=== PATIENT | female | born 1955 | race African-American/Black ===

== ENCOUNTER 2018-03-18 10:58 | Inpatient (IN) | payer BC, MEDICAID ==
[~2018-03-18] VITALS: Ht 167.6 cm; Wt 57.8 kg
[2018-03-18 12:03] LABS: EOSINOPHILS % 0.7 % (0.0-5.0); HEMATOCRIT. 39.3 % (36.0-48.0); HEMOGLOBIN. 12.6 g/dL (12.0-16.0); LYMPHOCYTES % 24.6 % (20.0-50.0); MEAN CORPUSCULAR HEMOGLOBIN 29.3 pg (28.0-32.0); MEAN CORPUSCULAR VOLUME 91.4 fL (81.0-99.0); MEAN PLATELET VOLUME 8.4 fl (7.4-10.4); NEUTROPHILS % 69.7 % (40.0-76.0); PLATELET 280 x1000/uL (130-400); RED BLOOD CELL COUNT 4.29 mill/uL (4.2-5.4)
[2018-03-18 12:05] LABS: CHLORIDE 106 mEq/L (98-107)
[2018-03-18 12:06] LABS: PROTHROMBIN TIME 10.5 sec (9.1-11.1)
[2018-03-18 12:17] LABS: ETHANOL BLOOD < 10 mg/dL
[2018-03-18 12:19] LABS: LDL CHOLESTEROL 93 mg/dL (5-100)
[2018-03-18] MEDS ORDERED: LABETALOL HCL 20MG/4ML CARPUJECT IV ONE (12:30)
[2018-03-18] MEDS ORDERED: ASPIRIN 81MG TABLET PO ONE (12:30)
[2018-03-18] MEDS ORDERED: SODIUM CHLORIDE 0.9% 500 ML IV ONE (12:30)
[2018-03-18] MEDS ORDERED: HYDRALAZINE 20MG/ML VIAL IV ONE (13:30)
[2018-03-18] MEDS ORDERED: ASPIRIN 300MG SUPP PR ONE (14:15)
[2018-03-18] MEDS ORDERED: IOHEXOL-350 100 ML BOTTLE ONE (14:28)
[2018-03-18] MEDS ORDERED: LABETALOL HCL 20MG/4ML CARPUJECT IV NR (15:45)
[2018-03-18] MEDS ORDERED: DEXTROSE 50% WATER 50ML SYRINGE IV PRN (15:45)
[2018-03-18] MEDS ORDERED: ONDANSETRON HCL 4MG/2ML INJ IV PRN (15:45)
[2018-03-18] MEDS ORDERED: HYDRALAZINE 20MG/ML VIAL IV PRN ×2 (16:00→20:00)
[2018-03-18] MEDS ORDERED: BLOOD SUGAR DIAGNOSTIC STRIP TEST SCH (16:00)
[2018-03-18] MEDS ORDERED: INSULIN LISPRO 100 UNITS/ML SUBCUT SCH (16:00)
[2018-03-18 17:08] LABS: CLARITY URINE CLOUDY (CLEAR); COLOR URINE YELLOW (YELLOW); KETONES URINE NEGATIVE (NEGATIVE); LEUKOCYTE ESTERASE URINE 3+ (NEGATIVE); NITRITE URINE NEGATIVE (NEGATIVE); OCCULT BLOOD URINE 1+ (NEGATIVE); PROTEIN URINE TRACE (NEGATIVE); UROBILINOGEN URINE 0.2 E.U./dL (0.2-1.0)
[2018-03-18 17:46] LABS: *AMPHETAMINES SCREEN URINE NEGATIVE (NEGATIVE)
[2018-03-18 17:47] LABS: *BARBITURATES SCREEN URINE NEGATIVE (NEGATIVE); *BENZODIAZEPINES SCREEN URINE NEGATIVE (NEGATIVE); METHADONE URINE SCREEN NEGATIVE (NEGATIVE); OPIATES URINE SCREEN NEGATIVE (NEGATIVE); PHENCYCLIDINE URINE SCREEN NEGATIVE (NEGATIVE)
[2018-03-18 17:48] LABS: CANNABINOID URINE SCREEN NEGATIVE (NEGATIVE)
[2018-03-18 17:57] LABS: *COCAINE SCREEN URINE NEGATIVE (NEGATIVE)
[2018-03-18] MEDS ORDERED: CEFTRIAXONE 1 G PREMIX 50 ML IV ONE (18:30)
[2018-03-18] MEDS: ATORVASTATIN CALCIUM 20MG TABLET PO SCH (21:00)
[2018-03-19] VITALS (10 sets, daily range): BP systolic 95–140; BP diastolic 51–65
[2018-03-19] MEDS ORDERED: SODIUM CHLORIDE 0.45% 1,000 ML IV SCH (03:00)
[2018-03-19] MEDS: BLOOD SUGAR DIAGNOSTIC STRIP TEST SCH ×4 (06:40→20:42)
[2018-03-19 06:44] LABS: CHLORIDE 106 mEq/L (98-107)
[2018-03-19 06:59] LABS: BASOPHILS % 0.8 % (0.0-2.0); HEMATOCRIT. 32.7 % (36.0-48.0); HEMOGLOBIN. 10.7 g/dL (12.0-16.0); LYMPHOCYTES % 33.9 % (20.0-50.0); MEAN CORPUSCULAR HEMOGLOBIN 29.6 pg (28.0-32.0); MEAN PLATELET VOLUME 8.5 fl (7.4-10.4); MONOCYTES % 6.7 % (2.0-8.0); NEUTROPHILS % 57.6 % (40.0-76.0); PLATELET 249 x1000/uL (130-400); RED CELL DISTRIBUTION WIDTH 15.1 % (11.6-14.6)
[2018-03-19] MEDS: INSULIN LISPRO 100 UNITS/ML SUBCUT SCH ×4 (07:20→20:43)
[2018-03-19] MEDS ORDERED: ASPI-1159 PO (08:34)
[2018-03-19] MEDS ORDERED: LISI40TA4 PO (08:34)
[2018-03-19] MEDS ORDERED: LIP40 PO (08:34)
[2018-03-19] MEDS ORDERED: COR25 PO (08:34)
[2018-03-19] MEDS ORDERED: HYDR-4135 PO (08:34)
[2018-03-19] MEDS: ENOXAPARIN 40MG/0.4ML SYR SUBCUT SCH (09:25)
[2018-03-19] MEDS: CLOPIDOGREL 75MG TABLET PO SCH (12:22)
[2018-03-19] MEDS ORDERED: CEFTRIAXONE 1,000 MG in DEXTROSE 5% WATER 50 ML IV SCH (18:00)
[2018-03-19] MEDS: ATORVASTATIN CALCIUM 20MG TABLET PO SCH (20:47)
[2018-03-20] VITALS (7 sets, daily range): BP systolic 111–159; BP diastolic 59–78
[2018-03-20 06:28] LABS: BASOPHILS % 0.5 % (0.0-2.0); HEMATOCRIT. 30.5 % (36.0-48.0); HEMOGLOBIN. 10.1 g/dL (12.0-16.0); LYMPHOCYTES % 34.5 % (20.0-50.0); MEAN CORPUSCULAR HEMOGLOBIN 30.1 pg (28.0-32.0); MEAN CORPUSCULAR VOLUME 90.9 fL (81.0-99.0); MEAN PLATELET VOLUME 8.3 fl (7.4-10.4); MONOCYTES % 6.8 % (2.0-8.0); NEUTROPHILS % 56.2 % (40.0-76.0); PLATELET 230 x1000/uL (130-400); RED BLOOD CELL COUNT 3.36 mill/uL (4.2-5.4); RED CELL DISTRIBUTION WIDTH 15.4 % (11.6-14.6)
[2018-03-20] MEDS: BLOOD SUGAR DIAGNOSTIC STRIP TEST SCH (06:32)
[2018-03-20 06:44] LABS: CHLORIDE 108 mEq/L (98-107)
[2018-03-20] MEDS: INSULIN LISPRO 100 UNITS/ML SUBCUT SCH (07:20)
[2018-03-20] MEDS: ENOXAPARIN 40MG/0.4ML SYR SUBCUT SCH (08:02)
[2018-03-20] MEDS: CLOPIDOGREL 75MG TABLET PO SCH (08:02)
[2018-03-20] MEDS ORDERED: CLOP75TA16 PO (11:17)
== END 2018-03-20 12:18 | disposition home health service (06) | DRG 720 ==
LOC: ER 10:58 → 3WST 13:47 → EDBEDREQ 13:49 → EDBEDREQTM 13:49 → ENRESERV 03-19 00:40
PROVIDERS: ADMIT Internal Medicine; ATTEND Internal Medicine
DX: A41.9 Sepsis, unspecified organism (principal); I63.9 Cerebral infarction, unspecified; G93.41 Metabolic encephalopathy; I69.359 Hemiplegia and hemiparesis following cerebral infarction affecting unspecified side; R47.01 Aphasia; E11.9 Type 2 diabetes mellitus without complications; I16.0 Hypertensive urgency; N39.0 Urinary tract infection, site not specified; E78.5 Hyperlipidemia, unspecified; I10 Essential (primary) hypertension; I65.23 Occlusion and stenosis of bilateral carotid arteries; E44.1 Mild protein-calorie malnutrition
CPT/HCPCS: 36415; 70496; 70498; 70551; 71045; 80048; 80061; 80305; 82962; 83036; 83721; 84443; 84484; 87186; 92610; 93005; 93970; 96361; 96365; 96375; 96376; 97163; 99291; A6261; G0482; J0360; J0696; J1650; J1815; J3490; J7050; J7060; Q9967

== ENCOUNTER 2018-05-03 05:29 | Inpatient (IN) | payer MEDICAID ==
[2018-05-03] VITALS (24 sets, daily range): BP systolic 92–181; BP diastolic 51–106
[~2018-05-03] VITALS: Ht 165.1 cm; Wt 62.1 kg
[~2018-05-03 05:29] MED LIST: ASPI-1159 PO; CLOP75TA16 PO; COR25 PO; HYDR-4135 PO; LIP40 PO; LISI40TA4 PO
[2018-05-03] MEDS ORDERED: BACITRACIN 15GM TUBE TOP ONE (06:33)
[2018-05-03] MEDS ORDERED: LIDOCAINE HCL 1% 20ML VIAL (Pyxis) INJ ONE (06:33)
[2018-05-03] MEDS ORDERED: THROMBIN (BOVINE) 5000 UNITS/VIAL TOP ONE ×2 (06:34→07:49)
[2018-05-03] MEDS ORDERED: BACITRACIN 50,000 UNITS/VIAL ONE (06:34)
[2018-05-03] MEDS ORDERED: HEPARIN SODIUM 1,000 UNIT/1ML VIAL IV ONE (06:34)
[2018-05-03] MEDS ORDERED: BUPIVACAINE HCL/PF 0.5% (5MG/ML) 10ML ONE (06:34)
[2018-05-03] MEDS ORDERED: GELATIN SPONGE,ABSORBABLE 12-7MM SPONGE ONE (07:12)
[2018-05-03] MEDS ORDERED: MIDAZOLAM HCL 2 MG/2 ML VIAL ONE (07:19)
[2018-05-03] MEDS ORDERED: PROPOFOL 200MG/20ML VIAL IV ONE (07:19)
[2018-05-03] MEDS ORDERED: GLYCOPYRROLATE 0.2 MG/ML 2ML VIAL ONE ×2 (07:19→09:26)
[2018-05-03] MEDS ORDERED: ROCURONIUM BROMIDE 10MG/ML VIAL 5ML IV ONE (07:19)
[2018-05-03] MEDS ORDERED: FENTANYL CITRATE/PF 50MCG/ML 2ML VIAL ONE (07:19)
[2018-05-03] MEDS ORDERED: NEOSTIGMINE METHYLSULFATE 1MG/ML 10 ML VIAL ONE (07:19)
[2018-05-03] MEDS ORDERED: NORMAL SALINE 0.9% 10 ML SYR ONE (07:30)
[2018-05-03] MEDS ORDERED: LIDOCAINE HCL/PF 1% 10 MG/ML 5ML VIAL ONE (07:42)
[2018-05-03] MEDS ORDERED: DEXAMETHASONE 4MG/ML 1ML VIAL ONE (07:46)
[2018-05-03] MEDS ORDERED: ONDANSETRON HCL 4MG/2ML INJ ONE (08:59)
[2018-05-03] MEDS ORDERED: SODIUM CHLORIDE 0.9% 10ML VIAL ONE (09:41)
[2018-05-03] MEDS ORDERED: LABETALOL HCL 5MG/ML VIAL 20ML IV ONE ×2 (09:41→10:30)
[2018-05-03] MEDS ORDERED: ONDANSETRON HCL 4MG/2ML INJ IV PRN ×2 (10:15→10:30)
[2018-05-03] MEDS ORDERED: ACETAMINOPHEN 325MG TABLET PO PRN (10:30)
[2018-05-03] MEDS ORDERED: DEXTROSE 50% WATER 50ML SYRINGE IV PRN (10:30)
[2018-05-03] MEDS ORDERED: CLONIDINE 0.1MG TABLET PO PRN (10:30)
[2018-05-03] MEDS: HYDROMORPHONE HCL/PF 2MG/ML CPJ IV PRN ×3 (10:49→14:30)
[2018-05-03] MEDS ORDERED: HEPARIN 100 UNITS/1 ML VIAL IV ONE (11:30)
[2018-05-03] MEDS ORDERED: HEPARIN 100 UNITS/1 ML VIAL IV NR (12:00)
[2018-05-03] MEDS ORDERED: HEPARIN SODIUM 1,000 UNIT/1ML VIAL IV NR (12:00)
[2018-05-03] MEDS ORDERED: BLOOD SUGAR DIAGNOSTIC STRIP TEST SCH (13:00)
[2018-05-03] MEDS ORDERED: HYDRALAZINE 20MG/ML VIAL IV PRN (14:45)
[2018-05-03] MEDS ORDERED: HYDROCODONE/ACETAMINOPHEN 5/325MG TABLET PO PRN (15:30)
[2018-05-03] MEDS ORDERED: AMLO5TAB88 PO (15:52)
[2018-05-03 19:56] LABS: CHLORIDE 107 mEq/L (98-107)
[2018-05-03 20:03] LABS: HEMATOCRIT. 34.4 % (36.0-48.0); HEMOGLOBIN. 11.3 g/dL (12.0-16.0); MEAN CORPUSCULAR HEMOGLOBIN 30.5 pg (28.0-32.0); MEAN CORPUSCULAR VOLUME 92.4 fL (81.0-99.0); MEAN PLATELET VOLUME 8.4 fl (7.4-10.4); PLATELET 225 x1000/uL (130-400); RED BLOOD CELL COUNT 3.72 mill/uL (4.2-5.4); RED CELL DISTRIBUTION WIDTH 14.3 % (11.6-14.6)
[2018-05-03] MEDS: ATORVASTATIN CALCIUM 40MG TABLET PO SCH (21:35)
[2018-05-03] MEDS: BLOOD SUGAR DIAGNOSTIC STRIP TEST SCH (21:35)
[2018-05-03] MEDS: INSULIN LISPRO 100 UNITS/ML SUBCUT SCH (21:36)
[2018-05-03 23:20] LABS: PLATELET ESTIMATE NORMAL
[2018-05-04] VITALS (30 sets, daily range): BP systolic 100–153; BP diastolic 50–76
[2018-05-04 05:47] LABS: BASOPHILS % 0.2 % (0.0-2.0); HEMATOCRIT. 29.5 % (36.0-48.0); HEMOGLOBIN. 10.3 g/dL (12.0-16.0); LYMPHOCYTES % 22.1 % (20.0-50.0); MEAN CORPUSCULAR HEMOGLOBIN 32.1 pg (28.0-32.0); MEAN CORPUSCULAR VOLUME 92.1 fL (81.0-99.0); MONOCYTES % 9.2 % (2.0-8.0); NEUTROPHILS % 68.5 % (40.0-76.0); PLATELET 212 x1000/uL (130-400); RED CELL DISTRIBUTION WIDTH 14.7 % (11.6-14.6)
[2018-05-04 05:51] LABS: CHLORIDE 108 mEq/L (98-107)
[2018-05-04] MEDS: BLOOD SUGAR DIAGNOSTIC STRIP TEST SCH ×4 (06:12→21:52)
[2018-05-04] MEDS: INSULIN LISPRO 100 UNITS/ML SUBCUT SCH ×4 (06:13→21:52)
[2018-05-04] MEDS: CLOPIDOGREL 75MG TABLET PO SCH (08:53)
[2018-05-04] MEDS: ASPIRIN 81MG TABLET PO SCH (08:54)
[2018-05-04] MEDS: LISINOPRIL 40MG TABLET PO SCH (08:56)
[2018-05-04] MEDS: ATORVASTATIN CALCIUM 40MG TABLET PO SCH (21:51)
[2018-05-05] VITALS (9 sets, daily range): BP systolic 104–165; BP diastolic 54–88
[2018-05-05] MEDS: BLOOD SUGAR DIAGNOSTIC STRIP TEST SCH ×3 (07:15→21:29)
[2018-05-05] MEDS: INSULIN LISPRO 100 UNITS/ML SUBCUT SCH ×4 (07:31→21:35)
[2018-05-05] MEDS: LISINOPRIL 40MG TABLET PO SCH (09:02)
[2018-05-05] MEDS: CLOPIDOGREL 75MG TABLET PO SCH (09:02)
[2018-05-05] MEDS: ASPIRIN 81MG TABLET PO SCH (09:02)
[2018-05-05 09:21] LABS: BASOPHILS % 0.2 % (0.0-2.0); EOSINOPHILS % 0.3 % (0.0-5.0); HEMATOCRIT. 28.7 % (36.0-48.0); HEMOGLOBIN. 9.7 g/dL (12.0-16.0); LYMPHOCYTES % 37.1 % (20.0-50.0); MEAN CORPUSCULAR HEMOGLOBIN 30.9 pg (28.0-32.0); MEAN CORPUSCULAR VOLUME 91.9 fL (81.0-99.0); MEAN PLATELET VOLUME 8.1 fl (7.4-10.4); MONOCYTES % 6.2 % (2.0-8.0); NEUTROPHILS % 56.2 % (40.0-76.0); PLATELET 206 x1000/uL (130-400); RED BLOOD CELL COUNT 3.13 mill/uL (4.2-5.4); RED CELL DISTRIBUTION WIDTH 14.3 % (11.6-14.6)
[2018-05-05 09:35] LABS: CHLORIDE 107 mEq/L (98-107)
[2018-05-05 12:14] LABS: INR 1.1; PROTHROMBIN TIME 11.1 sec (9.1-11.1)
[2018-05-05 12:17] LABS: FOLIC ACID (FOLATE) SERUM 10.1 ng/mL (>5.38)
[2018-05-05] MEDS ORDERED: IOHEXOL-350 100 ML BOTTLE ONE (14:09)
[2018-05-05] MEDS ORDERED: LABETALOL 5MG/ML SYR 20 MG/4 ML SYRINGE IV PRN (16:30)
[2018-05-05] MEDS ORDERED: WARFARIN SODIUM 3MG TABLET PO SCH (18:00)
[2018-05-05] MEDS: ENOXAPARIN 60MG/0.6ML SYR SUBCUT SCH (18:03)
[2018-05-05] MEDS: ATORVASTATIN CALCIUM 40MG TABLET PO SCH (21:28)
[2018-05-06] VITALS (15 sets, daily range): BP systolic 98–172; BP diastolic 56–105
[2018-05-06 06:39] LABS: INR 1.1; PROTHROMBIN TIME 10.7 sec (9.1-11.1)
[2018-05-06 06:43] LABS: BASOPHILS % 0.2 % (0.0-2.0); EOSINOPHILS % 0.9 % (0.0-5.0); HEMATOCRIT. 27.8 % (36.0-48.0); HEMOGLOBIN. 9.4 g/dL (12.0-16.0); LYMPHOCYTES % 41.2 % (20.0-50.0); MEAN CORPUSCULAR HEMOGLOBIN 31.2 pg (28.0-32.0); MEAN CORPUSCULAR VOLUME 92.2 fL (81.0-99.0); MEAN PLATELET VOLUME 8.3 fl (7.4-10.4); MONOCYTES % 6.3 % (2.0-8.0); NEUTROPHILS % 51.4 % (40.0-76.0); PLATELET 201 x1000/uL (130-400); RED BLOOD CELL COUNT 3.02 mill/uL (4.2-5.4); RED CELL DISTRIBUTION WIDTH 14.1 % (11.6-14.6)
[2018-05-06] MEDS: ENOXAPARIN 60MG/0.6ML SYR SUBCUT SCH ×2 (06:57→18:45)
[2018-05-06] MEDS: BLOOD SUGAR DIAGNOSTIC STRIP TEST SCH ×4 (07:30→21:00)
[2018-05-06 07:33] LABS: CHLORIDE 104 mEq/L (98-107)
[2018-05-06] MEDS: ASPIRIN 81MG TABLET PO SCH (10:02)
[2018-05-06] MEDS: CLOPIDOGREL 75MG TABLET PO SCH (10:03)
[2018-05-06] MEDS: LISINOPRIL 40MG TABLET PO SCH (10:03)
[2018-05-06] MEDS: INSULIN LISPRO 100 UNITS/ML SUBCUT SCH ×4 (10:21→21:00)
[2018-05-06] MEDS ORDERED: WARFARIN SODIUM 3MG TABLET PO NR (18:00)
[2018-05-06] MEDS: ATORVASTATIN CALCIUM 40MG TABLET PO SCH (20:59)
[2018-05-06] MEDS ORDERED: INSULIN GLARGINE UD 100 UNITS/ML SYR SUBCUT SCH (22:00)
[2018-05-07] VITALS (14 sets, daily range): BP systolic 90–131; BP diastolic 54–75
[2018-05-07] MEDS: ENOXAPARIN 60MG/0.6ML SYR SUBCUT SCH (06:00)
[2018-05-07 06:38] LABS: INR 1.1; PROTHROMBIN TIME 11.3 sec (9.1-11.1)
[2018-05-07 07:15] LABS: CLARITY URINE CLOUDY (CLEAR); COLOR URINE YELLOW (YELLOW); KETONES URINE NEGATIVE (NEGATIVE); LEUKOCYTE ESTERASE URINE 2+ (NEGATIVE); NITRITE URINE NEGATIVE (NEGATIVE); OCCULT BLOOD URINE TRACE (NEGATIVE); PROTEIN URINE NEGATIVE (NEGATIVE); SPECIFIC GRAVITY URINE 1.015 (1.005-1.030); UROBILINOGEN URINE 0.2 E.U./dL (0.2-1.0)
[2018-05-07 07:31] LABS: HEMATOCRIT 30.6 % (36.0-48.0); HEMOGLOBIN 10.2 g/dL (12.0-16.0); MEAN CORPUSCULAR HEMOGLOBIN 30.5 pg (28.0-32.0); MEAN CORPUSCULAR VOLUME 91.8 fL (81.0-99.0); PLATELET 245 x1000/uL (130-400); RED BLOOD CELL COUNT 3.33 mill/uL (4.2-5.4); RED CELL DISTRIBUTION WIDTH 14.2 % (11.6-14.6)
[2018-05-07] MEDS: BLOOD SUGAR DIAGNOSTIC STRIP TEST SCH ×2 (07:59→12:51)
[2018-05-07] MEDS: INSULIN LISPRO 100 UNITS/ML SUBCUT SCH ×2 (08:21→13:05)
[2018-05-07] MEDS: LISINOPRIL 40MG TABLET PO SCH (09:44)
[2018-05-07] MEDS: CLOPIDOGREL 75MG TABLET PO SCH (09:44)
[2018-05-07] MEDS ORDERED: WARFARIN SODIUM 5MG TABLET PO NR (18:00)
== END 2018-05-07 14:55 | disposition home health service (06) | DRG 24 ==
LOC: OR 05:29 → MICUNO 18:00 → 5WST 05-04 18:00 → 5EST 05-05 14:37
PROVIDERS: ADMIT Internal Medicine; ATTEND Surgery Vascular Surgery
PROC: 03CJ0Z6 (ICD-10-PCS; principal; 2018-05-03)
PROC: 03CN0Z6 (ICD-10-PCS; 2018-05-03)
PROC: 03CL0Z6 (ICD-10-PCS; 2018-05-03)
PROC: 03UJ0KZ Supplement Left Common Carotid Artery with Nonautologous Tissue Substitute, Open Approach (ICD-10-PCS; 2018-05-03)
PROC: 03UL0KZ Supplement Left Internal Carotid Artery with Nonautologous Tissue Substitute, Open Approach (ICD-10-PCS; 2018-05-03)
PROC: 03UN0KZ Supplement Left External Carotid Artery with Nonautologous Tissue Substitute, Open Approach (ICD-10-PCS; 2018-05-03)
DX: I65.23 Occlusion and stenosis of bilateral carotid arteries (principal); I77.71 Dissection of carotid artery; I63.512 Cerebral infarction due to unspecified occlusion or stenosis of left middle cerebral artery; G81.91 Hemiplegia, unspecified affecting right dominant side; G90.2 Horner's syndrome; D72.829 Elevated white blood cell count, unspecified; E11.9 Type 2 diabetes mellitus without complications; R47.01 Aphasia; E78.00 Pure hypercholesterolemia, unspecified; E78.5 Hyperlipidemia, unspecified; H57.02 Anisocoria; I10 Essential (primary) hypertension; R47.81 Slurred speech; R29.810 Facial weakness; Z82.49 Family history of ischemic heart disease and other diseases of the circulatory system; Z83.3 Family history of diabetes mellitus
CPT/HCPCS: 36415; 70496; 70498; 70551; 80048; 82140; 82607; 82746; 82962; 85027; 87077; 87186; 88304; 88311; 92523; 92610; 93306; 93970; 97112; 97162; 97167; 97530; A6261; J0360; J1100; J1170; J1644; J1650; J1815; J2250; J2405; J2704; J2710; J3010; J3490; J7040; Q9967; A4315

== ENCOUNTER 2018-06-29 13:21 | Inpatient (IN) | payer MEDICAID ==
[~2018-06-29] VITALS: Ht 165.1 cm; Wt 64.4 kg
[~2018-06-29 13:21] MED LIST changes: -ASPI-1159 PO; -CLOP75TA16 PO; -COR25 PO; -HYDR-4135 PO
[2018-06-29 14:19] LABS: BASOPHILS % 0.3 % (0.0-2.0); EOSINOPHILS % 0.3 % (0.0-5.0); HEMATOCRIT. 25.3 % (36.0-48.0); HEMOGLOBIN. 8.3 g/dL (12.0-16.0); LYMPHOCYTES % 17.3 % (20.0-50.0); MEAN CORPUSCULAR HEMOGLOBIN 30.7 pg (28.0-32.0); MEAN CORPUSCULAR VOLUME 93.3 fL (81.0-99.0); MEAN PLATELET VOLUME 8.5 fl (7.4-10.4); MONOCYTES % 6.1 % (2.0-8.0); PLATELET 195 x1000/uL (130-400); RED BLOOD CELL COUNT 2.72 mill/uL (4.2-5.4)
[2018-06-29 14:25] LABS: CHLORIDE 105 mEq/L (98-107)
[2018-06-29 14:32] LABS: ETHANOL BLOOD < 10 mg/dL
[2018-06-29 14:48] LABS: CLARITY URINE TURBID (CLEAR); COLOR URINE YELLOW (YELLOW); KETONES URINE NEGATIVE (NEGATIVE); LEUKOCYTE ESTERASE URINE 2+ (NEGATIVE); NITRITE URINE POSITIVE (NEGATIVE); OCCULT BLOOD URINE 2+ (NEGATIVE); PROTEIN URINE NEGATIVE (NEGATIVE); SPECIFIC GRAVITY URINE 1.024 (1.005-1.030)
[2018-06-29] MEDS ORDERED: IOHEXOL-350 100 ML BOTTLE ONE (15:52)
[2018-06-29 18:15] VITALS: BP 150/62
[2018-06-29] MEDS ORDERED: APIX5TAB4 PO (18:36)
[2018-06-29] MEDS ORDERED: ASPI-1159 PO (18:36)
[2018-06-29] MEDS ORDERED: CEFTRIAXONE 1 G PREMIX 50 ML IV SCH (19:30)
[2018-06-29 19:45] VITALS: BP 116/58
[2018-06-29 20:00] VITALS: BP 116/58
[2018-06-29] MEDS ORDERED: DEXTROSE 50% WATER 50ML SYRINGE IV PRN (20:45)
[2018-06-29] MEDS ORDERED: ONDANSETRON HCL 4MG/2ML INJ IV PRN (20:45)
[2018-06-29] MEDS: BLOOD SUGAR DIAGNOSTIC STRIP TEST SCH (21:18)
[2018-06-29] MEDS: INSULIN LISPRO 100 UNITS/ML SUBCUT SCH (21:25)
[2018-06-29] MEDS: CEFTRIAXONE 1 G PREMIX 50 ML IV SCH (22:35)
[2018-06-30] VITALS: BP 122/60
[2018-06-30 04:00] VITALS: BP 101/60
[2018-06-30 08:00] VITALS: BP 130/58
[2018-06-30] MEDS: BLOOD SUGAR DIAGNOSTIC STRIP TEST SCH ×4 (08:06→21:20)
[2018-06-30] MEDS ORDERED: ASPIRIN 81MG TABLET PO SCH (09:00)
[2018-06-30] MEDS: ATORVASTATIN CALCIUM 40MG TABLET PO SCH (09:49)
[2018-06-30] MEDS: LISINOPRIL 20MG TABLET PO SCH (09:50)
[2018-06-30] MEDS: INSULIN LISPRO 100 UNITS/ML SUBCUT SCH ×4 (09:52→21:41)
[2018-06-30 12:00] VITALS: BP 137/67
[2018-06-30] MEDS: SODIUM CHLORIDE 0.9% 1,000 ML IV SCH (15:00)
[2018-06-30] MEDS: SODIUM CHL 0.45% + KCL 20MEQ/L 1,000 ML IV SCH (18:01)
[2018-06-30 18:06] VITALS: BP 146/56
[2018-06-30 20:16] VITALS: BP 134/53
[2018-06-30] MEDS: CEFTRIAXONE 1 G PREMIX 50 ML IV SCH (21:20)
[2018-06-30] MEDS: INSULIN GLARGINE UD 100 UNITS/ML SYR SUBCUT SCH (21:39)
[2018-07-01] VITALS (10 sets, daily range): BP systolic 119–160; BP diastolic 25–87
[2018-07-01] MEDS: SODIUM CHLORIDE 0.9% 1,000 ML IV SCH ×3 (01:00→21:00)
[2018-07-01] MEDS: SODIUM CHL 0.45% + KCL 20MEQ/L 1,000 ML IV SCH (05:20)
[2018-07-01] MEDS: BLOOD SUGAR DIAGNOSTIC STRIP TEST SCH ×4 (06:16→21:41)
[2018-07-01 06:27] LABS: BASOPHILS % 0.6 % (0.0-2.0); EOSINOPHILS % 0.3 % (0.0-5.0); LYMPHOCYTES % 25.8 % (20.0-50.0); MEAN CORPUSCULAR HEMOGLOBIN 30.9 pg (28.0-32.0); MEAN PLATELET VOLUME 8.5 fl (7.4-10.4); MONOCYTES % 8.1 % (2.0-8.0); NEUTROPHILS % 65.2 % (40.0-76.0); PLATELET 201 x1000/uL (130-400); RED BLOOD CELL COUNT 2.26 mill/uL (4.2-5.4); RED CELL DISTRIBUTION WIDTH 12.8 % (11.6-14.6)
[2018-07-01 07:07] LABS: CHLORIDE 107 mEq/L (98-107)
[2018-07-01] MEDS: INSULIN LISPRO 100 UNITS/ML SUBCUT SCH ×4 (07:56→21:00)
[2018-07-01] MEDS ORDERED: ASPIRIN 300MG SUPP PR SCH (09:00)
[2018-07-01] MEDS: ATORVASTATIN CALCIUM 40MG TABLET PO SCH (09:00)
[2018-07-01] MEDS: LISINOPRIL 20MG TABLET PO SCH (09:00)
[2018-07-01] MEDS: LEVOFLOXACIN 500MG PREMIX 100 ML IV SCH (14:59)
[2018-07-01] MEDS ORDERED: ENOXAPARIN 40MG/0.4ML SYR SUBCUT SCH (16:00)
[2018-07-01] MEDS: INSULIN GLARGINE UD 100 UNITS/ML SYR SUBCUT SCH (21:41)
[2018-07-01] MEDS: ACETAMINOPHEN 325MG TABLET PO PRN (23:03)
[2018-07-02] VITALS (8 sets, daily range): BP systolic 127–166; BP diastolic 41–87
[2018-07-02] MEDS: SODIUM CHLORIDE 0.9% 1,000 ML IV SCH ×2 (05:39→17:05)
[2018-07-02] MEDS: ACETAMINOPHEN 325MG TABLET PO PRN ×3 (06:05→17:02)
[2018-07-02] MEDS: BLOOD SUGAR DIAGNOSTIC STRIP TEST SCH ×4 (06:05→21:08)
[2018-07-02] MEDS: INSULIN LISPRO 100 UNITS/ML SUBCUT SCH ×4 (06:26→21:00)
[2018-07-02 06:41] LABS: BASOPHILS % 0.5 % (0.0-2.0); EOSINOPHILS % 1.8 % (0.0-5.0); HEMATOCRIT. 24.9 % (36.0-48.0); HEMOGLOBIN. 8.4 g/dL (12.0-16.0); LYMPHOCYTES % 31.7 % (20.0-50.0); MEAN CORPUSCULAR HEMOGLOBIN 30.7 pg (28.0-32.0); MEAN CORPUSCULAR VOLUME 90.4 fL (81.0-99.0); MEAN PLATELET VOLUME 8.1 fl (7.4-10.4); MONOCYTES % 6.8 % (2.0-8.0); NEUTROPHILS % 59.2 % (40.0-76.0); PLATELET 202 x1000/uL (130-400); RED BLOOD CELL COUNT 2.75 mill/uL (4.2-5.4); RED CELL DISTRIBUTION WIDTH 13.5 % (11.6-14.6)
[2018-07-02 06:53] LABS: CHLORIDE 108 mEq/L (98-107)
[2018-07-02] MEDS: LISINOPRIL 20MG TABLET PO SCH (09:15)
[2018-07-02] MEDS: ATORVASTATIN CALCIUM 40MG TABLET PO SCH (09:15)
[2018-07-02] MEDS: LEVOFLOXACIN 500MG PREMIX 100 ML IV SCH (12:34)
[2018-07-02] MEDS: MORPHINE SULFATE 4 MG/ML CPJ (NOT FOR IM USE) IV PRN ×2 (13:36→21:18)
[2018-07-02] MEDS: INSULIN GLARGINE UD 100 UNITS/ML SYR SUBCUT SCH (21:34)
[2018-07-03] VITALS: BP 162/55
[2018-07-03 04:00] VITALS: BP 159/60
[2018-07-03] MEDS: SODIUM CHLORIDE 0.9% 1,000 ML IV SCH ×3 (04:16→23:49)
[2018-07-03 06:30] LABS: CHLORIDE 107 mEq/L (98-107)
[2018-07-03 06:37] LABS: BASOPHILS % 0.4 % (0.0-2.0); EOSINOPHILS % 1.9 % (0.0-5.0); HEMATOCRIT. 25.9 % (36.0-48.0); HEMOGLOBIN. 8.8 g/dL (12.0-16.0); LYMPHOCYTES % 18.8 % (20.0-50.0); MEAN CORPUSCULAR HEMOGLOBIN 30.7 pg (28.0-32.0); MEAN CORPUSCULAR VOLUME 90.5 fL (81.0-99.0); MEAN PLATELET VOLUME 8.3 fl (7.4-10.4); MONOCYTES % 6.4 % (2.0-8.0); NEUTROPHILS % 72.5 % (40.0-76.0); PLATELET 226 x1000/uL (130-400); RED BLOOD CELL COUNT 2.86 mill/uL (4.2-5.4); RED CELL DISTRIBUTION WIDTH 13.3 % (11.6-14.6)
[2018-07-03] MEDS: BLOOD SUGAR DIAGNOSTIC STRIP TEST SCH ×4 (07:41→20:00)
[2018-07-03] MEDS: INSULIN LISPRO 100 UNITS/ML SUBCUT SCH ×4 (08:10→21:00)
[2018-07-03] MEDS: ATORVASTATIN CALCIUM 40MG TABLET PO SCH (09:00)
[2018-07-03] MEDS: LISINOPRIL 20MG TABLET PO SCH (09:00)
[2018-07-03 12:00] VITALS: BP 168/65
[2018-07-03] MEDS: MORPHINE SULFATE 4 MG/ML CPJ (NOT FOR IM USE) IV PRN (12:21)
[2018-07-03] MEDS: LEVOFLOXACIN 500MG PREMIX 100 ML IV SCH (13:38)
[2018-07-03] MEDS ORDERED: POTASSIUM CHLORIDE 20MEQ TABLET SR PO NR (15:00)
[2018-07-03 16:00] VITALS: BP 187/55
[2018-07-03] MEDS ORDERED: VANCOMYCIN HCL 500 MG/VIAL ONE (16:13)
[2018-07-03] MEDS ORDERED: BUPIVACAINE HCL/PF 0.25% (2.5MG/ML) 10ML ONE (16:13)
[2018-07-03] MEDS ORDERED: MIDAZOLAM HCL 2 MG/2 ML VIAL ONE (17:23)
[2018-07-03] MEDS ORDERED: FENTANYL CITRATE/PF 50MCG/ML 2ML VIAL ONE (17:23)
[2018-07-03] MEDS ORDERED: DEXAMETHASONE 4MG/ML 1ML VIAL ONE (17:30)
[2018-07-03] MEDS ORDERED: PHENYLEPHRINE HCL 10 MG/ML 1ML (IV VIAL) IV ONE (17:32)
[2018-07-03] MEDS ORDERED: ESMOLOL HCL 10MG/ML 10ML VIAL IV ONE (17:35)
[2018-07-03] MEDS ORDERED: LABETALOL HCL 5MG/ML VIAL 20ML IV ONE (17:39)
[2018-07-03] MEDS ORDERED: ROCURONIUM BROMIDE 10MG/ML VIAL 5ML IV ONE (17:50)
[2018-07-03] MEDS ORDERED: ONDANSETRON HCL 4MG/2ML INJ ONE (18:30)
[2018-07-03] MEDS ORDERED: HYDRALAZINE 20MG/ML VIAL IV NR (19:30)
[2018-07-03] MEDS: HYDROMORPHONE HCL/PF 2MG/ML CPJ IV PRN ×2 (19:48→19:53)
[2018-07-03 20:40] VITALS: BP 144/47
[2018-07-03] MEDS ORDERED: CEFAZOLIN SODIUM 1000MG/VIAL IV SCH (22:00)
[2018-07-03] MEDS: INSULIN GLARGINE UD 100 UNITS/ML SYR SUBCUT SCH (22:00)
[2018-07-03] MEDS: CEFAZOLIN 1000MG PREMIX 50 ML IV SCH (23:11)
[2018-07-04] VITALS: BP 104/55
[2018-07-04] MEDS: HYDROMORPHONE HCL/PF 2MG/ML CPJ IV PRN ×2 (00:41→11:47)
[2018-07-04 04:00] VITALS: BP 111/59
[2018-07-04] MEDS: CEFAZOLIN 1000MG PREMIX 50 ML IV SCH ×3 (05:15→21:37)
[2018-07-04 06:28] LABS: BASOPHILS % 0.1 % (0.0-2.0); HEMATOCRIT. 25.1 % (36.0-48.0); HEMOGLOBIN. 8.2 g/dL (12.0-16.0); LYMPHOCYTES % 7.8 % (20.0-50.0); MEAN CORPUSCULAR VOLUME 91.6 fL (81.0-99.0); MEAN PLATELET VOLUME 8.5 fl (7.4-10.4); MONOCYTES % 3.9 % (2.0-8.0); NEUTROPHILS % 88.2 % (40.0-76.0); PLATELET 251 x1000/uL (130-400); RED BLOOD CELL COUNT 2.75 mill/uL (4.2-5.4); RED CELL DISTRIBUTION WIDTH 13.3 % (11.6-14.6)
[2018-07-04] MEDS: BLOOD SUGAR DIAGNOSTIC STRIP TEST SCH ×4 (06:45→21:37)
[2018-07-04 07:00] LABS: CHLORIDE 107 mEq/L (98-107)
[2018-07-04 08:00] VITALS: BP 99/56
[2018-07-04] MEDS: LISINOPRIL 20MG TABLET PO SCH (09:00)
[2018-07-04] MEDS: INSULIN LISPRO 100 UNITS/ML SUBCUT SCH ×4 (09:21→21:36)
[2018-07-04] MEDS: ATORVASTATIN CALCIUM 40MG TABLET PO SCH (09:56)
[2018-07-04 12:00] VITALS: BP 126/57
[2018-07-04] MEDS: LEVOFLOXACIN 500MG PREMIX 100 ML IV SCH (13:18)
[2018-07-04] MEDS ORDERED: HYDROCODONE/ACETAMINOPHEN 5/325MG TABLET PO PRN (14:45)
[2018-07-04 16:00] VITALS: BP 140/61
[2018-07-04] MEDS: SODIUM CHLORIDE 0.9% 1,000 ML IV SCH (19:00)
[2018-07-04 20:00] VITALS: BP 124/79
[2018-07-04] MEDS: INSULIN GLARGINE UD 100 UNITS/ML SYR SUBCUT SCH (21:37)
[2018-07-05] VITALS (19 sets, daily range): BP systolic 129–169; BP diastolic 50–80
[2018-07-05] MEDS: SODIUM CHLORIDE 0.9% 1,000 ML IV SCH ×2 (05:06→14:55)
[2018-07-05 07:11] LABS: BASOPHILS % 0.2 % (0.0-2.0); LYMPHOCYTES % 20.3 % (20.0-50.0); MEAN CORPUSCULAR HEMOGLOBIN 30.9 pg (28.0-32.0); MEAN CORPUSCULAR VOLUME 91.7 fL (81.0-99.0); MEAN PLATELET VOLUME 7.7 fl (7.4-10.4); MONOCYTES % 6.1 % (2.0-8.0); NEUTROPHILS % 72.4 % (40.0-76.0); PLATELET 221 x1000/uL (130-400); RED BLOOD CELL COUNT 1.96 mill/uL (4.2-5.4); RED CELL DISTRIBUTION WIDTH 13.3 % (11.6-14.6)
[2018-07-05 07:22] LABS: CHLORIDE 113 mEq/L (98-107)
[2018-07-05 07:37] LABS: HEMATOCRIT. 17.9 % (36.0-48.0)
[2018-07-05] MEDS: INSULIN LISPRO 100 UNITS/ML SUBCUT SCH ×4 (08:10→21:00)
[2018-07-05] MEDS: BLOOD SUGAR DIAGNOSTIC STRIP TEST SCH ×4 (08:17→21:17)
[2018-07-05] MEDS: ATORVASTATIN CALCIUM 40MG TABLET PO SCH (09:00)
[2018-07-05] MEDS: LISINOPRIL 20MG TABLET PO SCH (09:00)
[2018-07-05] MEDS ORDERED: ACETAMINOPHEN 650MG SUPP PR PRN (11:00)
[2018-07-05] MEDS: LEVETIRACETAM 500 MG in SODIUM CHLORIDE 0.9% 100 ML IV SCH (14:54)
[2018-07-05] MEDS: LEVOFLOXACIN 500MG PREMIX 100 ML IV SCH (14:56)
[2018-07-05 18:15] LABS: T4 FREE 1.3 ng/dL (0.76-1.46)
[2018-07-05 18:17] LABS: FOLIC ACID (FOLATE) SERUM 14.3 ng/mL (>5.38)
[2018-07-05] MEDS: HYDROCODONE/ACETAMINOPHEN 5/325MG TABLET PO PRN (21:29)
[2018-07-06] VITALS (13 sets, daily range): BP systolic 131–165; BP diastolic 61–92
[2018-07-06] MEDS: SODIUM CHLORIDE 0.9% 1,000 ML IV SCH (00:45)
[2018-07-06] MEDS: LEVETIRACETAM 500 MG in SODIUM CHLORIDE 0.9% 100 ML IV SCH ×2 (01:23→10:23)
[2018-07-06] MEDS: HYDROCODONE/ACETAMINOPHEN 5/325MG TABLET PO PRN ×2 (02:44→13:27)
[2018-07-06] MEDS: INSULIN GLARGINE UD 100 UNITS/ML SYR SUBCUT SCH (03:27)
[2018-07-06 07:20] LABS: INR 1.1; PROTHROMBIN TIME 11.7 sec (9.6-11.0)
[2018-07-06 07:24] LABS: BASOPHILS % 0.3 % (0.0-2.0); HEMATOCRIT. 23.3 % (36.0-48.0); HEMOGLOBIN. 7.9 g/dL (12.0-16.0); LYMPHOCYTES % 21.2 % (20.0-50.0); MEAN CORPUSCULAR HEMOGLOBIN 30.4 pg (28.0-32.0); MEAN CORPUSCULAR VOLUME 89.7 fL (81.0-99.0); NEUTROPHILS % 70.5 % (40.0-76.0); PLATELET 217 x1000/uL (130-400); RED BLOOD CELL COUNT 2.59 mill/uL (4.2-5.4); RED CELL DISTRIBUTION WIDTH 13.9 % (11.6-14.6)
[2018-07-06] MEDS: BLOOD SUGAR DIAGNOSTIC STRIP TEST SCH ×3 (07:37→17:22)
[2018-07-06] MEDS: INSULIN LISPRO 100 UNITS/ML SUBCUT SCH ×3 (07:37→18:09)
[2018-07-06 07:38] LABS: CHLORIDE 111 mEq/L (98-107)
[2018-07-06] MEDS: LISINOPRIL 20MG TABLET PO SCH (09:20)
[2018-07-06] MEDS: ATORVASTATIN CALCIUM 40MG TABLET PO SCH (09:20)
[2018-07-06] MEDS: LEVOFLOXACIN 500MG PREMIX 100 ML IV SCH (13:28)
[2018-07-07] MEDS ORDERED: LEVOFLOXACIN 500MG TABLET PO SCH (11:00)
== END 2018-07-06 21:02 | disposition home health service (06) | DRG 710 ==
LOC: ER 13:21 → 7WST 16:45 → EDBEDREQ 16:47 → ENRESERV 17:13 → 5EST 07-05 12:49
PROVIDERS: ADMIT Internal Medicine; ATTEND Internal Medicine
PROC: 30233N1 Transfusion of Nonautologous Red Blood Cells into Peripheral Vein, Percutaneous Approach (ICD-10-PCS; 2018-07-01)
PROC: 0QS604Z Reposition Right Upper Femur with Internal Fixation Device, Open Approach (ICD-10-PCS; principal; 2018-07-03)
PROC: BQ101ZZ Fluoroscopy of Right Hip using Low Osmolar Contrast (ICD-10-PCS; 2018-07-04)
DX: A41.9 Sepsis, unspecified organism (principal); G92 Toxic encephalopathy; S72.21XA Displaced subtrochanteric fracture of right femur, initial encounter for closed fracture; D62 Acute posthemorrhagic anemia; G90.2 Horner's syndrome; I48.0 Paroxysmal atrial fibrillation; E11.9 Type 2 diabetes mellitus without complications; S82.001A Unspecified fracture of right patella, initial encounter for closed fracture; E78.5 Hyperlipidemia, unspecified; I10 Essential (primary) hypertension; N39.0 Urinary tract infection, site not specified; E78.00 Pure hypercholesterolemia, unspecified; I65.23 Occlusion and stenosis of bilateral carotid arteries; R29.810 Facial weakness; W05.0XXA Fall from non-moving wheelchair, initial encounter; Y93.89 Activity, other specified; Y92.89 Other specified places as the place of occurrence of the external cause; Z79.82 Long term (current) use of aspirin; Z79.899 Other long term (current) drug therapy; I69.328 Other speech and language deficits following cerebral infarction; I69.351 Hemiplegia and hemiparesis following cerebral infarction affecting right dominant side; Y99.8 Other external cause status
CPT/HCPCS: 36415; 70496; 70498; 70551; 73502; 73503; 73560; 73700; 76000; 80048; 80320; 82140; 82270; 82607; 82746; 82962; 83036; 84439; 84443; 84481; 84484; 85384; 86850; 86900; 86920; 87077; 87186; 92610; 93005; 93308; 97162; 97164; 97167; 99285; A6261; C1713; J0690; J0696; J1100; J1170; J1815; J1953; J1956; J2250; J2270; J2370; J2405; J3010; J3370; J3480; J3490; J7030; J7040; J7050; P9016; Q9967; G0480

== ENCOUNTER 2019-07-24 10:45 | Inpatient (IN) | payer MEDICAID ==
[2019-07-23 21:40] VITALS: BP 155/40
[2019-07-24] VITALS (11 sets, daily range): BP systolic 61–156; BP diastolic 38–86
[~2019-07-24] VITALS: Ht 165.1 cm; Wt 61.0 kg
[2019-07-24] MEDS ORDERED: SODIUM CHLORIDE 0.9% 500 ML IV ONE (11:04)
[2019-07-24 11:20] LABS: BASOPHILS % 0.4 % (0.0-2.0); EOSINOPHILS % 0.6 % (0.0-5.0); HEMATOCRIT. 28.5 % (36.0-48.0); HEMOGLOBIN. 9.4 g/dL (12.0-16.0); LYMPHOCYTES % 17.7 % (20.0-50.0); MEAN CORPUSCULAR HEMOGLOBIN 28.8 pg (28.0-32.0); MEAN CORPUSCULAR VOLUME 87.1 fL (81.0-99.0); MEAN PLATELET VOLUME 7.2 fl (7.4-10.4); MONOCYTES % 5.8 % (2.0-8.0); NEUTROPHILS % 75.5 % (40.0-76.0); PLATELET 385 x1000/uL (130-400); RED BLOOD CELL COUNT 3.27 mill/uL (4.2-5.4); RED CELL DISTRIBUTION WIDTH 13.4 % (11.6-14.6)
[2019-07-24 11:27] LABS: CHLORIDE 103 mEq/L (98-107)
[2019-07-24 11:28] LABS: INR 1.1; PROTHROMBIN TIME 12.2 sec (9.6-11.0)
[2019-07-24] MEDS ORDERED: LEVETIRACETAM 500MG PREMIX 100 ML IV ONE ×2 (11:30)
[2019-07-24 11:33] LABS: ETHANOL BLOOD < 10 mg/dL
[2019-07-24 11:35] LABS: LDL CHOLESTEROL 74 mg/dL (5-100)
[2019-07-24 11:37] LABS: CREATINE KINASE 56 IU/L (26-192)
[2019-07-24] MEDS ORDERED: DOPAMINE 400MG/250ML PREMIX 250 ML IV ONE (12:45)
[2019-07-24] MEDS ORDERED: ONDANSETRON HCL 4MG/2ML INJ IV PRN (14:30)
[2019-07-24] MEDS ORDERED: IPRATROPIUM/ALBUTEROL 0.5-3(2.5)MG/3ML NEB HHN PRN (14:30)
[2019-07-24] MEDS ORDERED: DIPHENHYDRAMINE 50MG/ML VIAL IV PRN (14:30)
[2019-07-24 14:37] LABS: CLARITY URINE CLOUDY (CLEAR); COLOR URINE YELLOW (YELLOW); KETONES URINE NEGATIVE (NEGATIVE); LEUKOCYTE ESTERASE URINE 1+ (NEGATIVE); NITRITE URINE NEGATIVE (NEGATIVE); OCCULT BLOOD URINE NEGATIVE (NEGATIVE); PH URINE 6.5 (4.5-8.0); PROTEIN URINE NEGATIVE (NEGATIVE); SPECIFIC GRAVITY URINE 1.014 (1.005-1.030); UROBILINOGEN URINE 0.2 E.U./dL (0.2-1.0)
[2019-07-24 14:55] LABS: *AMPHETAMINES SCREEN URINE NEGATIVE (NEGATIVE); *BARBITURATES SCREEN URINE NEGATIVE (NEGATIVE); *BENZODIAZEPINES SCREEN URINE NEGATIVE (NEGATIVE)
[2019-07-24 14:56] LABS: *COCAINE SCREEN URINE NEGATIVE (NEGATIVE); CANNABINOID URINE SCREEN NEGATIVE (NEGATIVE); METHADONE URINE SCREEN NEGATIVE (NEGATIVE); OPIATES URINE SCREEN NEGATIVE (NEGATIVE); PHENCYCLIDINE URINE SCREEN NEGATIVE (NEGATIVE)
[2019-07-24] MEDS ORDERED: CEFTRIAXONE 1 G PREMIX 50 ML IV SCH (15:15)
[2019-07-24] MEDS ORDERED: GABA-531 PO (16:45)
[2019-07-24] MEDS ORDERED: CARV25TA47 MT (16:45)
[2019-07-24] MEDS ORDERED: METF-414 MT (16:45)
[2019-07-24] MEDS ORDERED: APIX5TAB4 PO (16:45)
[2019-07-24] MEDS ORDERED: AMLO5TAB88 MT (16:45)
[2019-07-24] MEDS ORDERED: ASCO-339 MT (16:45)
[2019-07-24] MEDS ORDERED: NOREPINEPHRINE 4 MG in DEXT 5% WATER 246 ML IV PRN (17:15)
[2019-07-24] MEDS ORDERED: DOPAMINE 800MG/500ML PREMIX 500 ML IV PRN (19:00)
[2019-07-24] MEDS: DOPAMINE 400MG/250ML PREMIX 250 ML IV PRN (20:05)
[2019-07-24 21:33] LABS: T4 FREE 1.23 ng/dL (0.76-1.46)
[2019-07-24] MEDS: BLOOD SUGAR DIAGNOSTIC STRIP TEST SCH (21:40)
[2019-07-24 22:02] LABS: VITAMIN B12 SERUM 466 pg/mL (211-911)
[2019-07-24] MEDS ORDERED: DEXTROSE 50% WATER 50ML SYRINGE IV PRN (22:15)
[2019-07-24] MEDS: INSULIN LISPRO 100 UNITS/ML SUBCUT SCH (23:14)
[2019-07-24] MEDS: ACETAMINOPHEN 325MG TABLET PO PRN (23:14)
[2019-07-25] VITALS (74 sets, daily range): BP systolic 59–171; BP diastolic 31–103
[2019-07-25] MEDS: DOPAMINE 400MG/250ML PREMIX 250 ML IV PRN (02:00)
[2019-07-25 06:03] LABS: BASOPHILS % 0.6 % (0.0-2.0); EOSINOPHILS % 0.9 % (0.0-5.0); HEMOGLOBIN. 9.8 g/dL (12.0-16.0); LYMPHOCYTES % 19.9 % (20.0-50.0); MEAN CORPUSCULAR HEMOGLOBIN 29.4 pg (28.0-32.0); MEAN CORPUSCULAR VOLUME 87.1 fL (81.0-99.0); MEAN PLATELET VOLUME 7.8 fl (7.4-10.4); MONOCYTES % 5.6 % (2.0-8.0); PLATELET 418 x1000/uL (130-400); RED BLOOD CELL COUNT 3.33 mill/uL (4.2-5.4); RED CELL DISTRIBUTION WIDTH 13.3 % (11.6-14.6)
[2019-07-25 06:10] LABS: CHLORIDE 102 mEq/L (98-107)
[2019-07-25 06:23] LABS: LDL CHOLESTEROL 73 mg/dL (5-100)
[2019-07-25 06:31] LABS: HDL CHOLESTEROL 41 mg/dL (40-59)
[2019-07-25] MEDS ORDERED: INSULIN LISPRO 100 UNITS/ML SUBCUT SCH (08:20)
[2019-07-25] MEDS: BLOOD SUGAR DIAGNOSTIC STRIP TEST SCH ×4 (08:37→21:00)
[2019-07-25] MEDS: INSULIN LISPRO 100 UNITS/ML SUBCUT SCH ×4 (08:40→21:00)
[2019-07-25] MEDS ORDERED: APIXABAN 5 MG TABLET PO SCH (12:00)
[2019-07-25] MEDS: ENOXAPARIN 40MG/0.4ML SYR SUBCUT SCH (13:24)
[2019-07-25] MEDS: OLANZAPINE 5MG TABLET PO SCH (13:24)
[2019-07-25] MEDS ORDERED: GABAPENTIN 300MG CAPSULE PO SCH (21:00)
[2019-07-25] MEDS: ATORVASTATIN CALCIUM 40MG TABLET PO SCH (22:23)
[2019-07-26] VITALS (25 sets, daily range): BP systolic 90–140; BP diastolic 42–80
[2019-07-26 06:04] LABS: BASOPHILS % 0.2 % (0.0-2.0); EOSINOPHILS % 0.9 % (0.0-5.0); HEMOGLOBIN. 8.7 g/dL (12.0-16.0); LYMPHOCYTES % 20.3 % (20.0-50.0); MEAN CORPUSCULAR VOLUME 86.8 fL (81.0-99.0); MEAN PLATELET VOLUME 7.6 fl (7.4-10.4); MONOCYTES % 6.8 % (2.0-8.0); NEUTROPHILS % 71.8 % (40.0-76.0); PLATELET 345 x1000/uL (130-400); RED BLOOD CELL COUNT 2.99 mill/uL (4.2-5.4); RED CELL DISTRIBUTION WIDTH 13.3 % (11.6-14.6)
[2019-07-26 06:09] LABS: CHLORIDE 104 mEq/L (98-107)
[2019-07-26] MEDS: BLOOD SUGAR DIAGNOSTIC STRIP TEST SCH ×4 (07:50→20:28)
[2019-07-26] MEDS: INSULIN LISPRO 100 UNITS/ML SUBCUT SCH ×4 (07:52→20:28)
[2019-07-26] MEDS: OLANZAPINE 5MG TABLET PO SCH ×2 (08:00→08:24)
[2019-07-26] MEDS ORDERED: IOHEXOL-350 100 ML BOTTLE ONE (09:24)
[2019-07-26] MEDS ORDERED: SODIUM CHLORIDE 0.9% 1000ML BAG (SEPSIS BOLUS) IV ONE (10:15)
[2019-07-26] MEDS ORDERED: SODIUM CHLORIDE 0.9% 500 ML IV NR (10:30)
[2019-07-26] MEDS: SODIUM CHLORIDE 0.9% 1,000 ML IV SCH (10:43)
[2019-07-26 10:46] LABS: BG BASE EXCESS 0.1 mmol/L (-2.0-2.0); BG CARBOXYHEMOGLOBIN 0.3 % (0.5-1.5); BG DEOXYHEMOGLOBIN 4.9 % (0.0-5.0); BG HCO3 ACT 24.3 mmol/L (22.0-26.0); BG METHEMOGLOBIN 0.4 % (0.0-1.5); BG OXYGEN SATURATION 95.1 % (92.0-98.5); BG OXYHEMOGLOBIN 94.4 % (94.0-97.0); BG PCO2 37.7 mmHg (35.0-45.0); BG PH 7.427 (7.350-7.450); BG PO2 78.9 mmHg (75.0-100.0); BG SAMPLE SITE RIGHT RADIAL; BG TOTAL HEMOGLOBIN 9.7 g/dL (12.0-18.0); BG VENT MODE ROOM AIR
[2019-07-26] MEDS: ENOXAPARIN 40MG/0.4ML SYR SUBCUT SCH (12:41)
[2019-07-26 17:49] LABS: FOLIC ACID (FOLATE) SERUM 12.5 ng/mL (>5.38)
[2019-07-26] MEDS: ATORVASTATIN CALCIUM 40MG TABLET PO SCH (21:14)
[2019-07-27] VITALS (11 sets, daily range): BP systolic 100–202; BP diastolic 52–91
[2019-07-27] MEDS: ACETAMINOPHEN 325MG TABLET PO PRN (02:08)
[2019-07-27] MEDS: SODIUM CHLORIDE 0.9% 1,000 ML IV SCH ×2 (05:03→13:23)
[2019-07-27] MEDS: BLOOD SUGAR DIAGNOSTIC STRIP TEST SCH ×5 (06:26→20:40)
[2019-07-27] MEDS: INSULIN LISPRO 100 UNITS/ML SUBCUT SCH ×4 (06:27→20:40)
[2019-07-27 06:49] LABS: BASOPHILS % 0.2 % (0.0-2.0); EOSINOPHILS % 1.2 % (0.0-5.0); HEMOGLOBIN. 8.1 g/dL (12.0-16.0); LYMPHOCYTES % 27.2 % (20.0-50.0); MEAN CORPUSCULAR HEMOGLOBIN 29.5 pg (28.0-32.0); MEAN CORPUSCULAR VOLUME 87.2 fL (81.0-99.0); MEAN PLATELET VOLUME 7.5 fl (7.4-10.4); NEUTROPHILS % 64.4 % (40.0-76.0); PLATELET 331 x1000/uL (130-400); RED BLOOD CELL COUNT 2.75 mill/uL (4.2-5.4); RED CELL DISTRIBUTION WIDTH 13.6 % (11.6-14.6)
[2019-07-27 07:12] LABS: CHLORIDE 109 mEq/L (98-107)
[2019-07-27] MEDS ORDERED: LORAZEPAM 0.5MG TABLET PO PRN (11:00)
[2019-07-27] MEDS ORDERED: LEVETIRACETAM 500 MG in SODIUM CHLORIDE 0.9% 100 ML IV SCH (11:00)
[2019-07-27] MEDS: LEVETIRACETAM 500MG PREMIX 100 ML IV SCH ×2 (12:32→20:48)
[2019-07-27] MEDS ORDERED: IOHEXOL-350 100 ML BOTTLE ONE (14:28)
[2019-07-27] MEDS: ENOXAPARIN 40MG/0.4ML SYR SUBCUT SCH (14:39)
[2019-07-27] MEDS: AMLODIPINE 5MG TABLET PO SCH (17:02)
[2019-07-27] MEDS: ATORVASTATIN CALCIUM 40MG TABLET PO SCH (20:48)
[2019-07-28] VITALS (10 sets, daily range): BP systolic 119–168; BP diastolic 56–87
[2019-07-28] MEDS: SODIUM CHLORIDE 0.9% 1,000 ML IV SCH (05:41)
[2019-07-28] MEDS: BLOOD SUGAR DIAGNOSTIC STRIP TEST SCH ×2 (06:08→11:43)
[2019-07-28] MEDS: INSULIN LISPRO 100 UNITS/ML SUBCUT SCH ×2 (07:09→11:43)
[2019-07-28 07:35] LABS: BASOPHILS % 0.4 % (0.0-2.0); EOSINOPHILS % 1.6 % (0.0-5.0); HEMATOCRIT. 28.9 % (36.0-48.0); HEMOGLOBIN. 9.6 g/dL (12.0-16.0); MEAN CORPUSCULAR HEMOGLOBIN 29.4 pg (28.0-32.0); MEAN CORPUSCULAR VOLUME 88.5 fL (81.0-99.0); MEAN PLATELET VOLUME 7.4 fl (7.4-10.4); PLATELET 335 x1000/uL (130-400); RED BLOOD CELL COUNT 3.26 mill/uL (4.2-5.4); RED CELL DISTRIBUTION WIDTH 13.6 % (11.6-14.6)
[2019-07-28] MEDS: LEVETIRACETAM 500MG PREMIX 100 ML IV SCH (08:16)
[2019-07-28] MEDS: AMLODIPINE 5MG TABLET PO SCH (08:17)
[2019-07-28 09:09] LABS: CHLORIDE 105 mEq/L (98-107)
[2019-07-28] MEDS ORDERED: AMLO5TAB88 MT (11:35)
[2019-07-28] MEDS ORDERED: KEPP500 MT (11:35)
[2019-07-28] MEDS ORDERED: SULF1TAB48 MT (11:45)
[2019-07-28] MEDS ORDERED: HYDRALAZINE 20MG/ML VIAL IV PRN (12:00)
[2019-07-28] MEDS ORDERED: HYDR-4134 MT (12:31)
[2019-07-28] MEDS: ENOXAPARIN 40MG/0.4ML SYR SUBCUT SCH (13:00)
== END 2019-07-28 16:25 | disposition home health service (06) | DRG 720 ==
LOC: ER 10:45 → MICUSO 12:26 → EDBEDREQ 12:30 → EDBEDREQTM 12:30 → CVICU 21:30 → 3WST 07-27 00:07
PROVIDERS: ADMIT Internal Medicine; ATTEND Internal Medicine
PROC: 05HY33Z Insertion of Infusion Device into Upper Vein, Percutaneous Approach (ICD-10-PCS; principal; 2019-07-24)
PROC: B54NZZA Ultrasonography of Left Upper Extremity Veins, Guidance (ICD-10-PCS; 2019-07-24)
DX: A41.9 Sepsis, unspecified organism (principal); G93.41 Metabolic encephalopathy; E46 Unspecified protein-calorie malnutrition; E11.51 Type 2 diabetes mellitus with diabetic peripheral angiopathy without gangrene; E11.621 Type 2 diabetes mellitus with foot ulcer; I95.9 Hypotension, unspecified; R13.10 Dysphagia, unspecified; I48.0 Paroxysmal atrial fibrillation; I11.0 Hypertensive heart disease with heart failure; N39.0 Urinary tract infection, site not specified; I50.32 Chronic diastolic (congestive) heart failure; G40.909 Epilepsy, unspecified, not intractable, without status epilepticus; R00.1 Bradycardia, unspecified; D50.9 Iron deficiency anemia, unspecified; E78.00 Pure hypercholesterolemia, unspecified; I65.23 Occlusion and stenosis of bilateral carotid arteries; Z53.9 Procedure and treatment not carried out, unspecified reason; G90.2 Horner's syndrome; E78.5 Hyperlipidemia, unspecified; G90.8 Other disorders of autonomic nervous system; L97.519 Non-pressure chronic ulcer of other part of right foot with unspecified severity; I69.251 Hemiplegia and hemiparesis following other nontraumatic intracranial hemorrhage affecting right dominant side; I69.351 Hemiplegia and hemiparesis following cerebral infarction affecting right dominant side; Z79.01 Long term (current) use of anticoagulants; Z68.22 Body mass index [BMI] 22.0-22.9, adult; Z79.899 Other long term (current) drug therapy; Z74.01 Bed confinement status
CPT/HCPCS: 36415; 36600; 70498; 70551; 71045; 73630; 75635; 76937; 78580; 80048; 80053; 80061; 80305; 80320; 81003; 82140; 82375; 82550; 82607; 82746; 82805; 82962; 83036; 83540; 83550; 83605; 83721; 83735; 83880; 84100; 84145; 84439; 84443; 84484; 85025; 85651; 86140; 92523; 92610; 93005; 93306; 93880; 93923; 93970; 97110; 97162; 97167; 99291; C1725; J0696; J1265; J1650; J1815; J1953; J7030; J7040; Q9967; G0480

== ENCOUNTER 2019-08-18 13:39 | Inpatient (IN) | payer MEDICAID ==
[~2019-08-18] VITALS: Ht 165.1 cm; Wt 82.6 kg
[~2019-08-18 13:39] MED LIST changes: +APIX5TAB4 PO; +ASCO-339 MT; +HYDR-4134 MT; +KEPP500 MT; +METF-414 MT; +SULF1TAB48 MT
[2019-08-18] MEDS ORDERED: SODIUM CHLORIDE 0.9% 500 ML IV ONE (14:30)
[2019-08-18 17:21] LABS: BASOPHILS % 0.7 % (0.0-2.0); HEMATOCRIT. 27.1 % (36.0-48.0); HEMOGLOBIN. 8.8 g/dL (12.0-16.0); LYMPHOCYTES % 12.1 % (20.0-50.0); MEAN CORPUSCULAR HEMOGLOBIN 28.2 pg (28.0-32.0); MEAN CORPUSCULAR VOLUME 87.2 fL (81.0-99.0); MEAN PLATELET VOLUME 7.7 fl (7.4-10.4); MONOCYTES % 5.2 % (2.0-8.0); PLATELET 415 x1000/uL (130-400); RED BLOOD CELL COUNT 3.11 mill/uL (4.2-5.4); RED CELL DISTRIBUTION WIDTH 14.6 % (11.6-14.6)
[2019-08-18 17:22] LABS: CHLORIDE 102 mEq/L (98-107)
[2019-08-18 17:26] LABS: INR 1.1; PARTIAL THROMBOPLASTIN TIME 31.6 sec (23.4-31.0)
[2019-08-18] MEDS ORDERED: VANCOMYCIN 1 G PREMIX 200 ML IV SCH (20:00)
[2019-08-18] MEDS: PIPERACILLIN/TAZ 3.375G PREMIX 50 ML IV ONE ×2 (20:15→23:30)
[2019-08-18] MEDS ORDERED: SODIUM CHLORIDE 0.9% 1,000 ML IV NR (21:00)
[2019-08-18] MEDS ORDERED: MAGNESIUM/ALUMINUM HYDROXIDE/SIMETHICONE 30ML UDC PO PRN (23:00)
[2019-08-18] MEDS ORDERED: DOCUSATE SODIUM 100MG CAPSULE PO PRN (23:00)
[2019-08-18] MEDS ORDERED: PIPERACILLIN/TAZ 3.375G PREMIX 50 ML IV SCH (23:00)
[2019-08-18] MEDS ORDERED: IPRATROPIUM/ALBUTEROL 0.5-3(2.5)MG/3ML NEB NEB PRN (23:00)
[2019-08-18] MEDS ORDERED: ONDANSETRON HCL 4MG/2ML INJ IV PRN (23:00)
[2019-08-19 04:48] LABS: CHLORIDE 104 mEq/L (98-107)
[2019-08-19 04:56] LABS: HDL CHOLESTEROL 37 mg/dL (40-59); LDL CHOLESTEROL 77 mg/dL (5-100)
[2019-08-19 05:23] LABS: BASOPHILS % 0.4 % (0.0-2.0); EOSINOPHILS % 0.3 % (0.0-5.0); HEMATOCRIT. 27.5 % (36.0-48.0); HEMOGLOBIN. 9.1 g/dL (12.0-16.0); LYMPHOCYTES % 16.9 % (20.0-50.0); MEAN CORPUSCULAR HEMOGLOBIN 28.5 pg (28.0-32.0); MEAN CORPUSCULAR VOLUME 86.6 fL (81.0-99.0); MEAN PLATELET VOLUME 7.9 fl (7.4-10.4); MONOCYTES % 5.4 % (2.0-8.0); PLATELET 406 x1000/uL (130-400); RED BLOOD CELL COUNT 3.18 mill/uL (4.2-5.4); RED CELL DISTRIBUTION WIDTH 14.4 % (11.6-14.6)
[2019-08-19] MEDS ORDERED: VANCOMYCIN 1 G PREMIX 200 ML IV SCH ×2 (06:30→21:00)
[2019-08-19 06:56] LABS: CLARITY URINE CLOUDY (CLEAR); COLOR URINE YELLOW (YELLOW); KETONES URINE TRACE (NEGATIVE); LEUKOCYTE ESTERASE URINE 1+ (NEGATIVE); NITRITE URINE NEGATIVE (NEGATIVE); OCCULT BLOOD URINE NEGATIVE (NEGATIVE); PROTEIN URINE TRACE (NEGATIVE); SPECIFIC GRAVITY URINE 1.023 (1.005-1.030)
[2019-08-19] MEDS ORDERED: PIPERACILLIN/TAZ 3.375G PREMIX 50 ML IV SCH (08:00)
[2019-08-19] MEDS ORDERED: HEPARIN 5000 UNITS/ML VIAL SUBCUT SCH (09:00)
[2019-08-19 10:00] VITALS: BP 138/56
[2019-08-19 11:59] VITALS: BP 137/64
[2019-08-19] MEDS: LISINOPRIL 40MG TABLET PO SCH (14:33)
[2019-08-19] MEDS: ACETAMINOPHEN 325MG TABLET PO PRN (14:56)
[2019-08-19 16:00] VITALS: BP 119/52
[2019-08-19] MEDS ORDERED: PIPERACILLIN/TAZOBACTAM 3.375 G in DEXT 5% WATER 100 ML IV SCH ×4 (16:00)
[2019-08-19] MEDS: ENOXAPARIN 80MG/0.8ML SYR SUBCUT SCH (18:01)
[2019-08-19] MEDS ORDERED: DEXTROSE 50% WATER 50ML SYRINGE IV PRN (18:45)
[2019-08-19] MEDS: BLOOD SUGAR DIAGNOSTIC STRIP TEST SCH (21:18)
[2019-08-19] MEDS: VANCOMYCIN 1 G PREMIX 200 ML IV SCH (21:18)
[2019-08-19] MEDS: LEVETIRACETAM 500MG TABLET PO SCH (21:18)
[2019-08-19] MEDS: INSULIN LISPRO 100 UNITS/ML SUBCUT SCH (21:24)
[2019-08-20] VITALS: BP 112/61
[2019-08-20] MEDS: PIPERACILLIN/TAZOBACTAM 3.375 G in DEXT 5% WATER 100 ML IV SCH ×5 (00:14→23:59)
[2019-08-20] MEDS: ENOXAPARIN 80MG/0.8ML SYR SUBCUT SCH ×2 (03:41→16:00)
[2019-08-20 04:00] VITALS: BP 108/51
[2019-08-20 06:08] LABS: BASOPHILS % 0.4 % (0.0-2.0); EOSINOPHILS % 0.7 % (0.0-5.0); HEMATOCRIT. 23.5 % (36.0-48.0); HEMOGLOBIN. 7.8 g/dL (12.0-16.0); MEAN CORPUSCULAR HEMOGLOBIN 28.6 pg (28.0-32.0); MEAN CORPUSCULAR VOLUME 85.8 fL (81.0-99.0); MEAN PLATELET VOLUME 7.8 fl (7.4-10.4); MONOCYTES % 4.8 % (2.0-8.0); NEUTROPHILS % 78.1 % (40.0-76.0); PLATELET 369 x1000/uL (130-400); RED BLOOD CELL COUNT 2.73 mill/uL (4.2-5.4); RED CELL DISTRIBUTION WIDTH 14.3 % (11.6-14.6)
[2019-08-20 06:13] LABS: CHLORIDE 107 mEq/L (98-107)
[2019-08-20] MEDS: BLOOD SUGAR DIAGNOSTIC STRIP TEST SCH ×4 (06:28→21:05)
[2019-08-20] MEDS: INSULIN LISPRO 100 UNITS/ML SUBCUT SCH ×4 (06:29→21:00)
[2019-08-20 08:00] VITALS: BP 138/76
[2019-08-20] MEDS: VANCOMYCIN 1 G PREMIX 200 ML IV SCH ×2 (08:59→21:04)
[2019-08-20] MEDS: LISINOPRIL 40MG TABLET PO SCH (09:00)
[2019-08-20] MEDS: LEVETIRACETAM 500MG TABLET PO SCH ×2 (09:00→21:05)
[2019-08-20 11:48] VITALS: BP 151/73
[2019-08-20 11:54] VITALS: BP 151/73
[2019-08-20 16:00] VITALS: BP 129/55
[2019-08-20] MEDS ORDERED: DEXAMETHASONE 4MG/ML 1ML VIAL ONE (17:58)
[2019-08-20] MEDS ORDERED: BACITRACIN 15GM TUBE TOP ONE (17:58)
[2019-08-20] MEDS ORDERED: LIDOCAINE HCL 1% 20ML VIAL (Pyxis) INJ ONE ×2 (17:58→18:23)
[2019-08-20] MEDS ORDERED: BACITRACIN 50,000 UNITS/VIAL ONE ×2 (17:59→18:19)
[2019-08-20] MEDS ORDERED: NORMAL SALINE 0.9% 10 ML SYR ONE ×2 (17:59→18:19)
[2019-08-20] MEDS ORDERED: SODIUM CHLORIDE 0.9% 1,000 ML ONE (17:59)
[2019-08-20] MEDS ORDERED: BUPIVACAINE HCL/PF 0.5% (5MG/ML) 10ML ONE (17:59)
[2019-08-20] MEDS ORDERED: PROPOFOL 200MG/20ML VIAL IV ONE (18:09)
[2019-08-20] MEDS ORDERED: FENTANYL CITRATE/PF 50MCG/ML 2ML VIAL ONE (18:09)
[2019-08-20] MEDS ORDERED: SODIUM CHLORIDE 0.9% IR ONE (18:20)
[2019-08-20] MEDS ORDERED: SODIUM CHLORIDE 0.9% 10ML VIAL ONE (18:21)
[2019-08-20] MEDS ORDERED: CEFAZOLIN SODIUM 1000MG/VIAL ONE (18:21)
[2019-08-20] MEDS ORDERED: GENTAMICIN SULF 40MG/ML 2ML VIAL ONE (18:21)
[2019-08-20] MEDS ORDERED: ONDANSETRON HCL 4MG/2ML INJ IV PRN (19:15)
[2019-08-20] MEDS ORDERED: METOCLOPRAMIDE HCL 10MG/2ML VIAL IV PRN (19:15)
[2019-08-20] MEDS ORDERED: FENTANYL CITRATE/PF 50MCG/ML 2ML VIAL IV PRN (19:15)
[2019-08-21] VITALS: BP 139/69
[2019-08-21] MEDS: HYDROCODONE/ACETAMINOPHEN 5/325MG TABLET PO PRN (00:03)
[2019-08-21 07:44] LABS: CHLORIDE 105 mEq/L (98-107)
[2019-08-21 07:58] VITALS: BP 145/43
[2019-08-21] MEDS: LISINOPRIL 40MG TABLET PO SCH ×2 (08:52→08:58)
[2019-08-21] MEDS: LEVETIRACETAM 500MG TABLET PO SCH ×3 (08:52→20:47)
[2019-08-21 08:53] LABS: BASOPHILS % 0.3 % (0.0-2.0); EOSINOPHILS % 0.7 % (0.0-5.0); HEMOGLOBIN. 8.3 g/dL (12.0-16.0); LYMPHOCYTES % 15.3 % (20.0-50.0); MEAN CORPUSCULAR HEMOGLOBIN 27.8 pg (28.0-32.0); MEAN CORPUSCULAR VOLUME 87.3 fL (81.0-99.0); MEAN PLATELET VOLUME 7.5 fl (7.4-10.4); MONOCYTES % 7.2 % (2.0-8.0); NEUTROPHILS % 76.5 % (40.0-76.0); PLATELET 337 x1000/uL (130-400); RED BLOOD CELL COUNT 2.98 mill/uL (4.2-5.4); RED CELL DISTRIBUTION WIDTH 14.7 % (11.6-14.6)
[2019-08-21] MEDS: VANCOMYCIN 1 G PREMIX 200 ML IV SCH ×2 (11:24→20:47)
[2019-08-21 12:00] VITALS: BP 135/31
[2019-08-21] MEDS: BLOOD SUGAR DIAGNOSTIC STRIP TEST SCH ×3 (12:25→21:00)
[2019-08-21] MEDS: PIPERACILLIN/TAZOBACTAM 3.375 G in DEXT 5% WATER 100 ML IV SCH ×3 (12:30→17:20)
[2019-08-21] MEDS: INSULIN LISPRO 100 UNITS/ML SUBCUT SCH ×4 (12:32→21:00)
[2019-08-21 16:00] VITALS: BP 104/63
[2019-08-21] MEDS: ENOXAPARIN 80MG/0.8ML SYR SUBCUT SCH (17:20)
[2019-08-21 20:00] VITALS: BP 147/66
[2019-08-21] MEDS: ACETAMINOPHEN 325MG TABLET PO PRN (20:52)
[2019-08-21 23:34] VITALS: BP 136/60
[2019-08-22] MEDS: PIPERACILLIN/TAZOBACTAM 3.375 G in DEXT 5% WATER 100 ML IV SCH ×5 (00:04→23:43)
[2019-08-22 04:00] VITALS: BP 150/80
[2019-08-22] MEDS: ENOXAPARIN 80MG/0.8ML SYR SUBCUT SCH ×2 (04:00→17:45)
[2019-08-22] MEDS: BLOOD SUGAR DIAGNOSTIC STRIP TEST SCH ×4 (06:02→21:00)
[2019-08-22] MEDS: INSULIN LISPRO 100 UNITS/ML SUBCUT SCH ×4 (07:40→21:00)
[2019-08-22 07:59] VITALS: BP 148/69
[2019-08-22 08:57] LABS: BASOPHILS % 0.3 % (0.0-2.0); EOSINOPHILS % 0.4 % (0.0-5.0); HEMATOCRIT. 25.2 % (36.0-48.0); HEMOGLOBIN. 8.3 g/dL (12.0-16.0); LYMPHOCYTES % 12.2 % (20.0-50.0); MEAN CORPUSCULAR HEMOGLOBIN 28.5 pg (28.0-32.0); MEAN CORPUSCULAR VOLUME 86.5 fL (81.0-99.0); MEAN PLATELET VOLUME 7.6 fl (7.4-10.4); MONOCYTES % 5.9 % (2.0-8.0); NEUTROPHILS % 81.2 % (40.0-76.0); PLATELET 351 x1000/uL (130-400); RED BLOOD CELL COUNT 2.91 mill/uL (4.2-5.4); RED CELL DISTRIBUTION WIDTH 14.3 % (11.6-14.6)
[2019-08-22] MEDS: LEVETIRACETAM 500MG TABLET PO SCH ×2 (09:05→22:42)
[2019-08-22] MEDS: VANCOMYCIN 1 G PREMIX 200 ML IV SCH ×2 (09:05→22:42)
[2019-08-22] MEDS: LISINOPRIL 40MG TABLET PO SCH (09:05)
[2019-08-22 09:08] LABS: CHLORIDE 107 mEq/L (98-107)
[2019-08-22 12:10] VITALS: BP 152/55
[2019-08-22] MEDS ORDERED: KCL 20MEQ/100ML PREMIX 100 ML IV NR (13:00)
[2019-08-22 16:07] VITALS: BP 112/59
[2019-08-22 20:00] VITALS: BP 163/66
[2019-08-23] VITALS: BP 135/62
[2019-08-23 04:00] VITALS: BP 110/89
[2019-08-23] MEDS: ENOXAPARIN 80MG/0.8ML SYR SUBCUT SCH ×2 (04:00→17:42)
[2019-08-23] MEDS: PIPERACILLIN/TAZOBACTAM 3.375 G in DEXT 5% WATER 100 ML IV SCH ×3 (05:24→18:45)
[2019-08-23 05:59] LABS: BASOPHILS % 0.3 % (0.0-2.0); EOSINOPHILS % 0.4 % (0.0-5.0); HEMATOCRIT. 22.1 % (36.0-48.0); HEMOGLOBIN. 7.3 g/dL (12.0-16.0); LYMPHOCYTES % 12.8 % (20.0-50.0); MEAN CORPUSCULAR HEMOGLOBIN 28.4 pg (28.0-32.0); MEAN CORPUSCULAR VOLUME 85.3 fL (81.0-99.0); MEAN PLATELET VOLUME 7.7 fl (7.4-10.4); MONOCYTES % 5.8 % (2.0-8.0); NEUTROPHILS % 80.7 % (40.0-76.0); PLATELET 344 x1000/uL (130-400); RED BLOOD CELL COUNT 2.59 mill/uL (4.2-5.4); RED CELL DISTRIBUTION WIDTH 14.6 % (11.6-14.6)
[2019-08-23 06:12] LABS: CHLORIDE 107 mEq/L (98-107)
[2019-08-23] MEDS: BLOOD SUGAR DIAGNOSTIC STRIP TEST SCH ×4 (07:25→20:53)
[2019-08-23] MEDS: INSULIN LISPRO 100 UNITS/ML SUBCUT SCH ×4 (07:40→20:53)
[2019-08-23 08:00] VITALS: BP 132/60
[2019-08-23] MEDS: LISINOPRIL 40MG TABLET PO SCH (08:36)
[2019-08-23] MEDS: HYDROCODONE/ACETAMINOPHEN 5/325MG TABLET PO PRN (08:38)
[2019-08-23] MEDS: VANCOMYCIN 1 G PREMIX 200 ML IV SCH ×2 (08:38→20:53)
[2019-08-23] MEDS: LEVETIRACETAM 500MG TABLET PO SCH ×2 (08:38→21:00)
[2019-08-23] MEDS ORDERED: POTASSIUM CHLORIDE INJ 40 MEQ in DEXT 5% WATER 250 ML IV SCH (10:00)
[2019-08-23 20:00] VITALS: BP 108/75
[2019-08-24] VITALS: BP 115/64
[2019-08-24] MEDS: PIPERACILLIN/TAZOBACTAM 3.375 G in DEXT 5% WATER 100 ML IV SCH ×4 (00:51→18:33)
[2019-08-24 04:00] VITALS: BP 163/45
[2019-08-24] MEDS: ENOXAPARIN 80MG/0.8ML SYR SUBCUT SCH (04:44)
[2019-08-24] MEDS: BLOOD SUGAR DIAGNOSTIC STRIP TEST SCH ×4 (07:13→21:00)
[2019-08-24] MEDS: INSULIN LISPRO 100 UNITS/ML SUBCUT SCH ×4 (07:40→21:00)
[2019-08-24 08:00] VITALS: BP 106/56
[2019-08-24] MEDS: LISINOPRIL 40MG TABLET PO SCH (09:00)
[2019-08-24] MEDS: LEVETIRACETAM 500MG TABLET PO SCH ×3 (09:00→20:19)
[2019-08-24] MEDS: VANCOMYCIN 1 G PREMIX 200 ML IV SCH (09:57)
[2019-08-24 10:12] LABS: BASOPHILS % 0.3 % (0.0-2.0); EOSINOPHILS % 0.7 % (0.0-5.0); HEMOGLOBIN. 7.7 g/dL (12.0-16.0); LYMPHOCYTES % 10.1 % (20.0-50.0); MEAN CORPUSCULAR HEMOGLOBIN 28.5 pg (28.0-32.0); MEAN CORPUSCULAR VOLUME 85.1 fL (81.0-99.0); MEAN PLATELET VOLUME 7.5 fl (7.4-10.4); MONOCYTES % 5.1 % (2.0-8.0); NEUTROPHILS % 83.8 % (40.0-76.0); PLATELET 401 x1000/uL (130-400); RED CELL DISTRIBUTION WIDTH 14.6 % (11.6-14.6)
[2019-08-24] MEDS ORDERED: LORAZEPAM 2MG/ML CPJ IV PRN (10:45)
[2019-08-24 12:00] VITALS: BP 153/58
[2019-08-24 16:00] VITALS: BP_SYST 146; BP_SYST 152; BP_DIAS 58
[2019-08-24] MEDS ORDERED: ENOXAPARIN 80MG/0.8ML SYR SUBCUT SCH (16:00)
[2019-08-24 20:00] VITALS: BP 135/72
[2019-08-25] VITALS: BP 119/50
[2019-08-25] MEDS: PIPERACILLIN/TAZOBACTAM 3.375 G in DEXT 5% WATER 100 ML IV SCH ×3 (00:32→12:35)
[2019-08-25 04:00] VITALS: BP 137/52
[2019-08-25] MEDS: BLOOD SUGAR DIAGNOSTIC STRIP TEST SCH ×4 (07:10→21:00)
[2019-08-25] MEDS: INSULIN LISPRO 100 UNITS/ML SUBCUT SCH ×4 (07:40→21:00)
[2019-08-25 07:58] VITALS: BP 122/49
[2019-08-25] MEDS: LISINOPRIL 40MG TABLET PO SCH (09:07)
[2019-08-25] MEDS: LEVETIRACETAM 500MG TABLET PO SCH ×3 (09:07→22:40)
[2019-08-25 12:00] VITALS: BP 128/42
[2019-08-25 16:00] VITALS: BP 135/54
[2019-08-25] MEDS: SODIUM CHLORIDE 0.9% 1,000 ML IV SCH (16:30)
[2019-08-25] MEDS: APIXABAN 5 MG TABLET PO SCH ×3 (16:31→23:00)
[2019-08-25] MEDS: LINEZOLID 600 MG PREMIX 300 ML IV SCH (18:15)
[2019-08-25] MEDS: CEFEPIME 2,000 MG in DEXT 5% WATER 100 ML IV SCH (18:15)
[2019-08-25 20:00] VITALS: BP 142/63
[2019-08-25] MEDS ORDERED: PIPERACILLIN/TAZOBACTAM 2.25 G in DEXTROSE 5% WATER 50 ML IV SCH (20:00)
[2019-08-25] MEDS: ATORVASTATIN CALCIUM 40MG TABLET PO SCH ×2 (21:00→22:39)
[2019-08-26] VITALS: BP 152/56
[2019-08-26 04:00] VITALS: BP 133/57
[2019-08-26] MEDS: LINEZOLID 600 MG PREMIX 300 ML IV SCH ×2 (05:52→17:34)
[2019-08-26] MEDS: SODIUM CHLORIDE 0.9% 1,000 ML IV SCH ×3 (06:42→20:00)
[2019-08-26 06:45] LABS: BASOPHILS % 0.3 % (0.0-2.0); EOSINOPHILS % 1.3 % (0.0-5.0); HEMOGLOBIN. 7.2 g/dL (12.0-16.0); LYMPHOCYTES % 8.8 % (20.0-50.0); MEAN CORPUSCULAR VOLUME 85.6 fL (81.0-99.0); MEAN PLATELET VOLUME 7.2 fl (7.4-10.4); MONOCYTES % 6.2 % (2.0-8.0); NEUTROPHILS % 83.4 % (40.0-76.0); PLATELET 370 x1000/uL (130-400); RED BLOOD CELL COUNT 2.57 mill/uL (4.2-5.4); RED CELL DISTRIBUTION WIDTH 14.6 % (11.6-14.6)
[2019-08-26 07:07] LABS: PHOSPHORUS 3.7 mg/dL (2.5-4.9)
[2019-08-26] MEDS: BLOOD SUGAR DIAGNOSTIC STRIP TEST SCH ×4 (07:10→21:14)
[2019-08-26] MEDS: INSULIN LISPRO 100 UNITS/ML SUBCUT SCH ×4 (07:40→21:00)
[2019-08-26 08:00] VITALS: BP 142/74
[2019-08-26] MEDS: APIXABAN 5 MG TABLET PO SCH ×2 (09:04→17:33)
[2019-08-26] MEDS: LEVETIRACETAM 500MG TABLET PO SCH ×2 (09:04→21:13)
[2019-08-26 11:59] VITALS: BP 132/50
[2019-08-26 15:55] VITALS: BP 149/51
[2019-08-26] MEDS: CEFEPIME 2,000 MG in DEXT 5% WATER 100 ML IV SCH (17:34)
[2019-08-26 20:00] VITALS: BP 128/51
[2019-08-26] MEDS: ATORVASTATIN CALCIUM 40MG TABLET PO SCH (21:13)
[2019-08-27] VITALS: BP_SYST 105; BP_SYST 133; BP_DIAS 52; BP_DIAS 62
[2019-08-27 04:00] VITALS: BP 140/51
[2019-08-27] MEDS: LINEZOLID 600 MG PREMIX 300 ML IV SCH ×2 (05:10→17:33)
[2019-08-27] MEDS: SODIUM CHLORIDE 0.9% 1,000 ML IV SCH ×2 (06:11→17:32)
[2019-08-27] MEDS: BLOOD SUGAR DIAGNOSTIC STRIP TEST SCH ×4 (07:01→21:00)
[2019-08-27] MEDS: INSULIN LISPRO 100 UNITS/ML SUBCUT SCH ×4 (07:03→21:00)
[2019-08-27 07:46] VITALS: BP 108/61
[2019-08-27] MEDS: LEVETIRACETAM 500MG TABLET PO SCH ×2 (09:34→21:35)
[2019-08-27] MEDS: APIXABAN 5 MG TABLET PO SCH ×2 (09:34→17:32)
[2019-08-27 09:40] LABS: BASOPHILS % 0.4 % (0.0-2.0); EOSINOPHILS % 0.9 % (0.0-5.0); HEMATOCRIT. 21.9 % (36.0-48.0); HEMOGLOBIN. 7.2 g/dL (12.0-16.0); MEAN CORPUSCULAR HEMOGLOBIN 28.3 pg (28.0-32.0); MEAN CORPUSCULAR VOLUME 85.3 fL (81.0-99.0); MEAN PLATELET VOLUME 7.4 fl (7.4-10.4); MONOCYTES % 5.2 % (2.0-8.0); NEUTROPHILS % 83.5 % (40.0-76.0); PLATELET 426 x1000/uL (130-400); RED BLOOD CELL COUNT 2.56 mill/uL (4.2-5.4); RED CELL DISTRIBUTION WIDTH 14.8 % (11.6-14.6)
[2019-08-27] MEDS ORDERED: POTASSIUM CHLORIDE 20MEQ TABLET SR PO NR (10:30)
[2019-08-27 12:00] VITALS: BP 115/66
[2019-08-27] MEDS ORDERED: AMOX-494 MT (13:21)
[2019-08-27 16:00] VITALS: BP 161/64
[2019-08-27] MEDS: CEFEPIME 2,000 MG in DEXT 5% WATER 100 ML IV SCH (17:32)
[2019-08-27 20:00] VITALS: BP 155/56
[2019-08-27] MEDS: ATORVASTATIN CALCIUM 40MG TABLET PO SCH (21:35)
[2019-08-28] VITALS: BP 155/37
[2019-08-28] MEDS: SODIUM CHLORIDE 0.9% 1,000 ML IV SCH ×3 (03:00→21:06)
[2019-08-28 04:00] VITALS: BP 120/102
[2019-08-28] MEDS: LINEZOLID 600 MG PREMIX 300 ML IV SCH ×2 (05:35→17:29)
[2019-08-28] MEDS: BLOOD SUGAR DIAGNOSTIC STRIP TEST SCH ×4 (06:56→20:39)
[2019-08-28] MEDS: INSULIN LISPRO 100 UNITS/ML SUBCUT SCH ×4 (06:57→20:39)
[2019-08-28 08:00] VITALS: BP 140/39
[2019-08-28] MEDS: APIXABAN 5 MG TABLET PO SCH ×2 (08:24→16:46)
[2019-08-28] MEDS: LEVETIRACETAM 500MG TABLET PO SCH (08:24)
[2019-08-28 10:49] LABS: BASOPHILS % 0.5 % (0.0-2.0); HEMATOCRIT. 21.9 % (36.0-48.0); HEMOGLOBIN. 7.3 g/dL (12.0-16.0); LYMPHOCYTES % 9.7 % (20.0-50.0); MEAN CORPUSCULAR HEMOGLOBIN 28.5 pg (28.0-32.0); MEAN CORPUSCULAR VOLUME 84.9 fL (81.0-99.0); MEAN PLATELET VOLUME 7.2 fl (7.4-10.4); MONOCYTES % 5.5 % (2.0-8.0); NEUTROPHILS % 82.3 % (40.0-76.0); PLATELET 453 x1000/uL (130-400); RED BLOOD CELL COUNT 2.58 mill/uL (4.2-5.4); RED CELL DISTRIBUTION WIDTH 14.6 % (11.6-14.6)
[2019-08-28] MEDS ORDERED: MAGNESIUM 2 G PREMIX 50 ML IV ONE (11:00)
[2019-08-28 12:00] VITALS: BP 116/59
[2019-08-28 16:00] VITALS: BP 140/56
[2019-08-28] MEDS ORDERED: POTASSIUM CHLORIDE INJ 40 MEQ in DEXT 5% WATER 250 ML IV NR (16:00)
[2019-08-28] MEDS: CEFEPIME 2,000 MG in DEXT 5% WATER 100 ML IV SCH (17:29)
[2019-08-28 20:00] VITALS: BP 138/64
[2019-08-28] MEDS: ATORVASTATIN CALCIUM 40MG TABLET PO SCH (21:06)
[2019-08-29] VITALS: BP 145/69
[2019-08-29] MEDS: LINEZOLID 600 MG PREMIX 300 ML IV SCH ×2 (05:44→17:05)
[2019-08-29] MEDS: BLOOD SUGAR DIAGNOSTIC STRIP TEST SCH ×4 (06:47→21:28)
[2019-08-29] MEDS: INSULIN LISPRO 100 UNITS/ML SUBCUT SCH ×4 (06:47→21:00)
[2019-08-29 08:00] VITALS: BP 119/39
[2019-08-29] MEDS: APIXABAN 5 MG TABLET PO SCH ×2 (08:55→17:00)
[2019-08-29] MEDS: SODIUM CHLORIDE 0.9% 1,000 ML IV SCH ×2 (08:55→17:06)
[2019-08-29] MEDS: LEVETIRACETAM 500MG PREMIX 100 ML IV SCH ×2 (08:55→21:04)
[2019-08-29 12:09] VITALS: BP 158/49
[2019-08-29 16:00] VITALS: BP 137/54
[2019-08-29 16:25] LABS: BASOPHILS % 0.4 % (0.0-2.0); EOSINOPHILS % 0.7 % (0.0-5.0); HEMATOCRIT. 22.7 % (36.0-48.0); HEMOGLOBIN. 7.4 g/dL (12.0-16.0); MEAN CORPUSCULAR HEMOGLOBIN 27.9 pg (28.0-32.0); MEAN CORPUSCULAR VOLUME 85.1 fL (81.0-99.0); MEAN PLATELET VOLUME 7.4 fl (7.4-10.4); MONOCYTES % 6.1 % (2.0-8.0); NEUTROPHILS % 84.8 % (40.0-76.0); PLATELET 466 x1000/uL (130-400); RED BLOOD CELL COUNT 2.66 mill/uL (4.2-5.4); RED CELL DISTRIBUTION WIDTH 14.8 % (11.6-14.6)
[2019-08-29 16:37] LABS: PHOSPHORUS 3.1 mg/dL (2.5-4.9)
[2019-08-29] MEDS: CEFEPIME 2,000 MG in DEXT 5% WATER 100 ML IV SCH (17:05)
[2019-08-29 17:44] LABS: CREATININE URINE (RAW) 18.9 mg/dl
[2019-08-29] MEDS ORDERED: POTASSIUM CHLORIDE 20MEQ TABLET SR PO SCH (18:00)
[2019-08-29 20:00] VITALS: BP 163/88
[2019-08-29] MEDS ORDERED: KCL 20MEQ/100ML PREMIX 100 ML IV SCH (21:00)
[2019-08-29] MEDS: ATORVASTATIN CALCIUM 40MG TABLET PO SCH (21:04)
[2019-08-29] MEDS: CLONIDINE 0.1MG TABLET PO PRN (21:04)
[2019-08-30] VITALS: BP 115/75
[2019-08-30 04:00] VITALS: BP 154/60
[2019-08-30] MEDS: INSULIN LISPRO 100 UNITS/ML SUBCUT SCH ×4 (05:44→20:35)
[2019-08-30] MEDS: BLOOD SUGAR DIAGNOSTIC STRIP TEST SCH ×4 (05:44→20:35)
[2019-08-30] MEDS: LINEZOLID 600 MG PREMIX 300 ML IV SCH ×2 (05:51→21:30)
[2019-08-30 08:00] VITALS: BP 150/59
[2019-08-30] MEDS: APIXABAN 5 MG TABLET PO SCH ×2 (09:16→17:00)
[2019-08-30] MEDS: LEVETIRACETAM 500MG PREMIX 100 ML IV SCH ×2 (09:18→20:38)
[2019-08-30 12:00] VITALS: BP 164/37
[2019-08-30 15:17] LABS: BASOPHILS % 0.6 % (0.0-2.0); EOSINOPHILS % 1.4 % (0.0-5.0); HEMATOCRIT. 23.1 % (36.0-48.0); HEMOGLOBIN. 7.7 g/dL (12.0-16.0); LYMPHOCYTES % 10.3 % (20.0-50.0); MEAN CORPUSCULAR HEMOGLOBIN 28.3 pg (28.0-32.0); MEAN CORPUSCULAR VOLUME 85.2 fL (81.0-99.0); MEAN PLATELET VOLUME 7.2 fl (7.4-10.4); MONOCYTES % 4.7 % (2.0-8.0); PLATELET 525 x1000/uL (130-400); RED BLOOD CELL COUNT 2.71 mill/uL (4.2-5.4); RED CELL DISTRIBUTION WIDTH 14.9 % (11.6-14.6)
[2019-08-30 15:20] LABS: BG BASE EXCESS -6.6 mmol/L (-2.0-2.0); BG CARBOXYHEMOGLOBIN 0.7 % (0.5-1.5); BG DEOXYHEMOGLOBIN 2.3 % (0.0-5.0); BG FRACTION INSPIRED OXYGEN 21; BG HCO3 ACT 17.4 mmol/L (22.0-26.0); BG METHEMOGLOBIN 0.3 % (0.0-1.5); BG OXYGEN SATURATION 97.7 % (92.0-98.5); BG OXYHEMOGLOBIN 96.7 % (94.0-97.0); BG PCO2 29.1 mmHg (35.0-45.0); BG PH 7.395 (7.350-7.450); BG PO2 94.2 mmHg (75.0-100.0); BG SAMPLE SITE LEFT RADIAL; BG TOTAL HEMOGLOBIN 8.1 g/dL (12.0-18.0); BG VENT MODE ROOM AIR
[2019-08-30 15:27] LABS: PHOSPHORUS 3.1 mg/dL (2.5-4.9)
[2019-08-30 16:00] VITALS: BP 157/62
[2019-08-30] MEDS ORDERED: KCL 20MEQ/100ML PREMIX 100 ML IV ONE (17:00)
[2019-08-30 20:00] VITALS: BP 195/71
[2019-08-30] MEDS: HYDRALAZINE 20MG/ML VIAL IV PRN (20:17)
[2019-08-30] MEDS: ATORVASTATIN CALCIUM 40MG TABLET PO SCH (20:49)
[2019-08-31] VITALS: BP 130/42
[2019-08-31 04:00] VITALS: BP 134/48
[2019-08-31] MEDS: INSULIN LISPRO 100 UNITS/ML SUBCUT SCH ×4 (05:56→21:00)
[2019-08-31] MEDS: BLOOD SUGAR DIAGNOSTIC STRIP TEST SCH ×4 (05:56→21:09)
[2019-08-31 07:17] LABS: BASOPHILS % 0.5 % (0.0-2.0); EOSINOPHILS % 1.6 % (0.0-5.0); HEMATOCRIT. 22.7 % (36.0-48.0); HEMOGLOBIN. 7.5 g/dL (12.0-16.0); LYMPHOCYTES % 10.2 % (20.0-50.0); MEAN CORPUSCULAR HEMOGLOBIN 28.3 pg (28.0-32.0); MEAN CORPUSCULAR VOLUME 85.3 fL (81.0-99.0); MEAN PLATELET VOLUME 7.2 fl (7.4-10.4); MONOCYTES % 5.1 % (2.0-8.0); NEUTROPHILS % 82.6 % (40.0-76.0); PLATELET 521 x1000/uL (130-400); RED BLOOD CELL COUNT 2.66 mill/uL (4.2-5.4)
[2019-08-31 08:00] VITALS: BP 132/57
[2019-08-31] MEDS: LEVETIRACETAM 500MG PREMIX 100 ML IV SCH ×2 (08:43→21:46)
[2019-08-31] MEDS: APIXABAN 5 MG TABLET PO SCH ×2 (08:54→17:19)
[2019-08-31] MEDS ORDERED: POTASSIUM CHLORIDE 20MEQ/PACKET PO NR (13:00)
[2019-08-31 15:03] LABS: HEMATOCRIT 23.6 % (36.0-48.0); HEMOGLOBIN 7.7 g/dL (12.0-16.0); MEAN CORPUSCULAR HEMOGLOBIN 27.7 pg (28.0-32.0); MEAN CORPUSCULAR VOLUME 85.3 fL (81.0-99.0); PLATELET 513 x1000/uL (130-400); RED BLOOD CELL COUNT 2.77 mill/uL (4.2-5.4); RED CELL DISTRIBUTION WIDTH 15.3 % (11.6-14.6)
[2019-08-31 16:00] VITALS: BP 162/72
[2019-08-31 20:00] VITALS: BP 183/81
[2019-08-31] MEDS: SODIUM CHLORIDE 0.9% 1,000 ML IV SCH ×2 (20:00→20:41)
[2019-08-31] MEDS: HYDRALAZINE 20MG/ML VIAL IV PRN (20:44)
[2019-08-31] MEDS: ATORVASTATIN CALCIUM 40MG TABLET PO SCH (21:46)
[2019-08-31 22:40] VITALS: BP 121/61
[2019-09-01 00:18] VITALS: BP 120/59
[2019-09-01] MEDS: CEFEPIME 2,000 MG in DEXT 5% WATER 100 ML IV SCH (00:47)
[2019-09-01] MEDS: LINEZOLID 600 MG PREMIX 300 ML IV SCH ×2 (01:40→13:31)
[2019-09-01 04:00] VITALS: BP 132/63
[2019-09-01] MEDS: SODIUM CHLORIDE 0.9% 1,000 ML IV SCH ×2 (06:00→15:11)
[2019-09-01 06:15] LABS: HEMATOCRIT 21.5 % (36.0-48.0); HEMOGLOBIN 7.1 g/dL (12.0-16.0); MEAN CORPUSCULAR HEMOGLOBIN 28.3 pg (28.0-32.0); MEAN CORPUSCULAR VOLUME 85.2 fL (81.0-99.0); PLATELET 463 x1000/uL (130-400); RED BLOOD CELL COUNT 2.52 mill/uL (4.2-5.4); RED CELL DISTRIBUTION WIDTH 15.4 % (11.6-14.6)
[2019-09-01] MEDS: BLOOD SUGAR DIAGNOSTIC STRIP TEST SCH ×4 (06:17→21:42)
[2019-09-01] MEDS: INSULIN LISPRO 100 UNITS/ML SUBCUT SCH ×4 (06:21→21:00)
[2019-09-01 08:00] VITALS: BP 119/54
[2019-09-01] MEDS: APIXABAN 5 MG TABLET PO SCH (08:23)
[2019-09-01] MEDS: LEVETIRACETAM 500MG PREMIX 100 ML IV SCH ×2 (08:23→21:48)
[2019-09-01 12:00] VITALS: BP 112/37
[2019-09-01 16:24] VITALS: BP 145/70
[2019-09-01 20:00] VITALS: BP 139/83
[2019-09-01] MEDS: ATORVASTATIN CALCIUM 40MG TABLET PO SCH (21:48)
[2019-09-02] VITALS (9 sets, daily range): BP systolic 127–174; BP diastolic 50–71
[2019-09-02] MEDS: CEFEPIME 2,000 MG in DEXT 5% WATER 100 ML IV SCH (01:14)
[2019-09-02] MEDS: LINEZOLID 600 MG PREMIX 300 ML IV SCH ×2 (02:12→17:11)
[2019-09-02 06:44] LABS: BASOPHILS % 0.4 % (0.0-2.0); EOSINOPHILS % 1.9 % (0.0-5.0); LYMPHOCYTES % 15.5 % (20.0-50.0); MEAN CORPUSCULAR HEMOGLOBIN 28.3 pg (28.0-32.0); MEAN CORPUSCULAR VOLUME 85.4 fL (81.0-99.0); MEAN PLATELET VOLUME 7.3 fl (7.4-10.4); MONOCYTES % 5.9 % (2.0-8.0); NEUTROPHILS % 76.3 % (40.0-76.0); PLATELET 404 x1000/uL (130-400); RED BLOOD CELL COUNT 2.18 mill/uL (4.2-5.4); RED CELL DISTRIBUTION WIDTH 15.7 % (11.6-14.6)
[2019-09-02 06:54] LABS: HEMOGLOBIN. 6.2 g/dL (12.0-16.0)
[2019-09-02 06:55] LABS: HEMATOCRIT. 18.6 % (36.0-48.0)
[2019-09-02] MEDS: INSULIN LISPRO 100 UNITS/ML SUBCUT SCH ×4 (07:40→21:00)
[2019-09-02] MEDS: BLOOD SUGAR DIAGNOSTIC STRIP TEST SCH ×4 (07:46→21:16)
[2019-09-02] MEDS ORDERED: DIPHENHYDRAMINE 25MG CAPSULE PO NR (08:30)
[2019-09-02] MEDS ORDERED: ACETAMINOPHEN 650MG SUPP PR NR (08:30)
[2019-09-02] MEDS: LEVETIRACETAM 500MG PREMIX 100 ML IV SCH ×2 (08:35→21:18)
[2019-09-02] MEDS ORDERED: POTASSIUM CHLORIDE 20MEQ/PACKET PO NR (09:30)
[2019-09-02] MEDS: AMLODIPINE 5MG TABLET PO SCH (15:41)
[2019-09-02] MEDS: HYDRALAZINE 20MG/ML VIAL IV PRN (16:33)
[2019-09-02 17:30] LABS: HEMATOCRIT 25.1 % (36.0-48.0); HEMOGLOBIN 8.6 g/dL (12.0-16.0)
[2019-09-02 17:39] LABS: INR 1.2; PROTHROMBIN TIME 12.3 sec (9.6-11.0)
[2019-09-02] MEDS: ATORVASTATIN CALCIUM 40MG TABLET PO SCH (21:16)
[2019-09-02] MEDS: PANTOPRAZOLE SODIUM 40 MG/VIAL IV SCH (21:16)
[2019-09-03] VITALS: BP 120/51
[2019-09-03] MEDS: CEFEPIME 2,000 MG in DEXT 5% WATER 100 ML IV SCH (01:06)
[2019-09-03] MEDS: LINEZOLID 600 MG PREMIX 300 ML IV SCH ×2 (01:06→14:09)
[2019-09-03 04:00] VITALS: BP 158/66
[2019-09-03] MEDS: BLOOD SUGAR DIAGNOSTIC STRIP TEST SCH ×4 (05:41→20:09)
[2019-09-03] MEDS: INSULIN LISPRO 100 UNITS/ML SUBCUT SCH ×4 (05:44→20:09)
[2019-09-03 06:58] LABS: INR 1.2; PROTHROMBIN TIME 12.4 sec (9.6-11.0)
[2019-09-03 07:08] LABS: PHOSPHORUS 2.1 mg/dL (2.5-4.9)
[2019-09-03 07:27] LABS: BASOPHILS % 0.6 % (0.0-2.0); EOSINOPHILS % 1.2 % (0.0-5.0); HEMATOCRIT. 26.5 % (36.0-48.0); LYMPHOCYTES % 10.6 % (20.0-50.0); MEAN CORPUSCULAR HEMOGLOBIN 28.7 pg (28.0-32.0); MEAN CORPUSCULAR VOLUME 84.8 fL (81.0-99.0); MONOCYTES % 5.3 % (2.0-8.0); NEUTROPHILS % 82.3 % (40.0-76.0); RED BLOOD CELL COUNT 3.13 mill/uL (4.2-5.4); RED CELL DISTRIBUTION WIDTH 15.1 % (11.6-14.6)
[2019-09-03 07:46] VITALS: BP 165/72
[2019-09-03] MEDS: AMLODIPINE 5MG TABLET PO SCH (08:19)
[2019-09-03] MEDS: HYDRALAZINE 20MG/ML VIAL IV PRN (08:25)
[2019-09-03] MEDS: PANTOPRAZOLE SODIUM 40 MG/VIAL IV SCH (08:26)
[2019-09-03] MEDS: LEVETIRACETAM 500MG PREMIX 100 ML IV SCH ×2 (08:28→20:09)
[2019-09-03 10:47] LABS: PLATELET 352 x1000/uL (130-400)
[2019-09-03] MEDS ORDERED: FENTANYL CITRATE/PF 50MCG/ML 2ML VIAL ONE (11:13)
[2019-09-03] MEDS ORDERED: MIDAZOLAM HCL 5 MG/5 ML VIAL IV PRN (11:13)
[2019-09-03] MEDS ORDERED: MIDAZOLAM HCL 5 MG/5 ML VIAL ONE (11:13)
[2019-09-03] MEDS ORDERED: POTASSIUM PHOS,M-BASIC-D-BASIC 20 MMOL in DEXT 5% WATER 243.3333 ML IV NR (11:30)
[2019-09-03] MEDS ORDERED: MAGNESIUM 2 G PREMIX 50 ML IV NR (11:30)
[2019-09-03 14:30] VITALS: BP 161/70
[2019-09-03 16:38] LABS: ETHANOL BLOOD < 10 mg/dL
[2019-09-03 16:44] LABS: T4 FREE 1.41 ng/dL (0.76-1.46)
[2019-09-03 18:21] LABS: FOLIC ACID (FOLATE) SERUM 4.9 ng/mL (>5.38)
[2019-09-03 19:58] LABS: CLARITY URINE CLOUDY (CLEAR); COLOR URINE YELLOW (YELLOW); KETONES URINE NEGATIVE (NEGATIVE); LEUKOCYTE ESTERASE URINE 2+ (NEGATIVE); NITRITE URINE NEGATIVE (NEGATIVE); OCCULT BLOOD URINE 1+ (NEGATIVE); PH URINE 5.5 (4.5-8.0); PROTEIN URINE 1+ (NEGATIVE); SPECIFIC GRAVITY URINE 1.013 (1.005-1.030); UROBILINOGEN URINE 0.2 E.U./dL (0.2-1.0)
[2019-09-03 20:00] VITALS: BP 137/55
[2019-09-03 20:21] LABS: *AMPHETAMINES SCREEN URINE NEGATIVE (NEGATIVE); *BARBITURATES SCREEN URINE NEGATIVE (NEGATIVE); *BENZODIAZEPINES SCREEN URINE PRESUMTIVE POSITIVE (NEGATIVE); *COCAINE SCREEN URINE NEGATIVE (NEGATIVE); METHADONE URINE SCREEN NEGATIVE (NEGATIVE)
[2019-09-03 20:22] LABS: CANNABINOID URINE SCREEN NEGATIVE (NEGATIVE); OPIATES URINE SCREEN NEGATIVE (NEGATIVE); PHENCYCLIDINE URINE SCREEN NEGATIVE (NEGATIVE)
[2019-09-03] MEDS: ATORVASTATIN CALCIUM 40MG TABLET PO SCH (20:24)
[2019-09-04] VITALS: BP 144/77
[2019-09-04] MEDS: LINEZOLID 600 MG PREMIX 300 ML IV SCH ×2 (01:17→14:06)
[2019-09-04] MEDS: CEFEPIME 2,000 MG in DEXT 5% WATER 100 ML IV SCH (01:17)
[2019-09-04 04:00] VITALS: BP 133/52
[2019-09-04 06:05] LABS: BASOPHILS % 0.4 % (0.0-2.0); EOSINOPHILS % 1.7 % (0.0-5.0); HEMATOCRIT. 23.1 % (36.0-48.0); HEMOGLOBIN. 7.8 g/dL (12.0-16.0); LYMPHOCYTES % 11.9 % (20.0-50.0); MEAN CORPUSCULAR HEMOGLOBIN 28.6 pg (28.0-32.0); MEAN CORPUSCULAR VOLUME 84.4 fL (81.0-99.0); MEAN PLATELET VOLUME 7.4 fl (7.4-10.4); MONOCYTES % 5.1 % (2.0-8.0); NEUTROPHILS % 80.9 % (40.0-76.0); PLATELET 286 x1000/uL (130-400); RED BLOOD CELL COUNT 2.73 mill/uL (4.2-5.4); RED CELL DISTRIBUTION WIDTH 14.8 % (11.6-14.6)
[2019-09-04 06:18] LABS: PHOSPHORUS 3.5 mg/dL (2.5-4.9)
[2019-09-04] MEDS: BLOOD SUGAR DIAGNOSTIC STRIP TEST SCH ×4 (06:21→20:21)
[2019-09-04] MEDS: INSULIN LISPRO 100 UNITS/ML SUBCUT SCH ×4 (06:36→20:21)
[2019-09-04 07:52] VITALS: BP 167/83
[2019-09-04] MEDS: PANTOPRAZOLE SODIUM 40 MG/VIAL IV SCH (08:26)
[2019-09-04] MEDS: AMLODIPINE 5MG TABLET PO SCH ×2 (08:26→20:32)
[2019-09-04] MEDS: LEVETIRACETAM 500MG PREMIX 100 ML IV SCH ×2 (08:26→20:32)
[2019-09-04 11:44] VITALS: BP 152/49
[2019-09-04] MEDS: HYDRALAZINE HCL 25MG TABLET PO SCH ×2 (14:06→21:06)
[2019-09-04 16:00] VITALS: BP 125/53
[2019-09-04 20:00] VITALS: BP 136/58
[2019-09-04] MEDS: ATORVASTATIN CALCIUM 40MG TABLET PO SCH (20:32)
[2019-09-05] VITALS: BP 128/92
[2019-09-05] MEDS: CEFEPIME 2,000 MG in DEXT 5% WATER 100 ML IV SCH (00:44)
[2019-09-05] MEDS: LINEZOLID 600 MG PREMIX 300 ML IV SCH ×2 (01:36→14:19)
[2019-09-05 04:00] VITALS: BP 120/64
[2019-09-05] MEDS: BLOOD SUGAR DIAGNOSTIC STRIP TEST SCH ×4 (06:19→21:18)
[2019-09-05] MEDS: HYDRALAZINE HCL 25MG TABLET PO SCH ×3 (06:19→21:25)
[2019-09-05] MEDS: INSULIN LISPRO 100 UNITS/ML SUBCUT SCH ×4 (06:20→21:00)
[2019-09-05 08:14] VITALS: BP 128/83
[2019-09-05 09:08] LABS: BASOPHILS % 0.4 % (0.0-2.0); EOSINOPHILS % 1.3 % (0.0-5.0); HEMATOCRIT. 23.9 % (36.0-48.0); LYMPHOCYTES % 9.1 % (20.0-50.0); MEAN CORPUSCULAR HEMOGLOBIN 28.1 pg (28.0-32.0); MEAN CORPUSCULAR VOLUME 84.6 fL (81.0-99.0); MEAN PLATELET VOLUME 7.6 fl (7.4-10.4); NEUTROPHILS % 85.2 % (40.0-76.0); PLATELET 278 x1000/uL (130-400); RED BLOOD CELL COUNT 2.83 mill/uL (4.2-5.4); RED CELL DISTRIBUTION WIDTH 14.8 % (11.6-14.6)
[2019-09-05] MEDS: PANTOPRAZOLE SODIUM 40 MG/VIAL IV SCH (09:10)
[2019-09-05] MEDS: AMLODIPINE 5MG TABLET PO SCH ×2 (09:10→21:24)
[2019-09-05] MEDS: LEVETIRACETAM 500MG PREMIX 100 ML IV SCH ×2 (09:10→21:24)
[2019-09-05 12:00] VITALS: BP 133/52
[2019-09-05] MEDS ORDERED: KCL 10MEQ/50ML PREMIX 50 ML IV SCH (13:00)
[2019-09-05 16:00] VITALS: BP 122/66
[2019-09-05] MEDS: CLONIDINE 0.1MG TABLET PO PRN (17:54)
[2019-09-05 18:08] LABS: INR 1.1; PARTIAL THROMBOPLASTIN TIME 38.6 sec (23.4-31.0); PROTHROMBIN TIME 11.8 sec (9.6-11.0)
[2019-09-05 20:00] VITALS: BP 140/55
[2019-09-05] MEDS: ATORVASTATIN CALCIUM 40MG TABLET PO SCH (21:24)
[2019-09-06] VITALS (7 sets, daily range): BP systolic 105–145; BP diastolic 53–59
[2019-09-06] MEDS: CEFEPIME 2,000 MG in DEXT 5% WATER 100 ML IV SCH (01:11)
[2019-09-06] MEDS: LINEZOLID 600 MG PREMIX 300 ML IV SCH ×2 (01:12→15:04)
[2019-09-06] MEDS: HYDRALAZINE HCL 25MG TABLET PO SCH ×3 (06:39→21:57)
[2019-09-06] MEDS: BLOOD SUGAR DIAGNOSTIC STRIP TEST SCH ×4 (07:02→21:57)
[2019-09-06] MEDS: INSULIN LISPRO 100 UNITS/ML SUBCUT SCH ×4 (07:02→21:00)
[2019-09-06 07:15] LABS: BASOPHILS % 0.4 % (0.0-2.0); EOSINOPHILS % 1.8 % (0.0-5.0); HEMATOCRIT. 23.6 % (36.0-48.0); HEMOGLOBIN. 7.8 g/dL (12.0-16.0); LYMPHOCYTES % 15.5 % (20.0-50.0); MEAN CORPUSCULAR HEMOGLOBIN 28.3 pg (28.0-32.0); MEAN CORPUSCULAR VOLUME 85.2 fL (81.0-99.0); MEAN PLATELET VOLUME 8.1 fl (7.4-10.4); MONOCYTES % 3.9 % (2.0-8.0); NEUTROPHILS % 78.4 % (40.0-76.0); PLATELET 240 x1000/uL (130-400); RED BLOOD CELL COUNT 2.76 mill/uL (4.2-5.4); RED CELL DISTRIBUTION WIDTH 14.7 % (11.6-14.6)
[2019-09-06] MEDS: PANTOPRAZOLE SODIUM 40 MG/VIAL IV SCH (08:20)
[2019-09-06] MEDS: AMLODIPINE 5MG TABLET PO SCH ×2 (08:20→21:00)
[2019-09-06] MEDS: LEVETIRACETAM 500MG PREMIX 100 ML IV SCH ×2 (08:20→21:54)
[2019-09-06 12:37] LABS: GLUCOSE CSF 79 mg/dL (41-75)
[2019-09-06] MEDS: HYDRALAZINE 20MG/ML VIAL IV PRN (15:04)
[2019-09-06] MEDS: ATORVASTATIN CALCIUM 40MG TABLET PO SCH (21:54)
[2019-09-06] MEDS: LACTULOSE 20G/30ML UDC PO SCH (21:57)
[2019-09-07] VITALS (14 sets, daily range): BP systolic 109–146; BP diastolic 40–82
[2019-09-07] MEDS: CEFEPIME 2,000 MG in DEXT 5% WATER 100 ML IV SCH (00:22)
[2019-09-07] MEDS: LINEZOLID 600 MG PREMIX 300 ML IV SCH (01:02)
[2019-09-07] MEDS: LACTULOSE 20G/30ML UDC PO SCH ×3 (06:26→21:22)
[2019-09-07] MEDS: BLOOD SUGAR DIAGNOSTIC STRIP TEST SCH ×4 (06:26→20:41)
[2019-09-07] MEDS: HYDRALAZINE HCL 25MG TABLET PO SCH ×3 (06:26→21:19)
[2019-09-07] MEDS: INSULIN LISPRO 100 UNITS/ML SUBCUT SCH ×4 (06:26→20:42)
[2019-09-07] MEDS: PANTOPRAZOLE SODIUM 40 MG/VIAL IV SCH (09:37)
[2019-09-07] MEDS: AMLODIPINE 5MG TABLET PO SCH ×2 (09:37→21:19)
[2019-09-07] MEDS: LEVETIRACETAM 500MG PREMIX 100 ML IV SCH ×2 (09:38→20:20)
[2019-09-07 10:39] LABS: BASOPHILS % 0.3 % (0.0-2.0); EOSINOPHILS % 1.4 % (0.0-5.0); LYMPHOCYTES % 11.7 % (20.0-50.0); MEAN CORPUSCULAR HEMOGLOBIN 28.5 pg (28.0-32.0); MEAN CORPUSCULAR VOLUME 85.2 fL (81.0-99.0); MEAN PLATELET VOLUME 8.3 fl (7.4-10.4); MONOCYTES % 3.7 % (2.0-8.0); NEUTROPHILS % 82.9 % (40.0-76.0); PLATELET 190 x1000/uL (130-400); RED BLOOD CELL COUNT 2.41 mill/uL (4.2-5.4); RED CELL DISTRIBUTION WIDTH 15.1 % (11.6-14.6)
[2019-09-07 10:52] LABS: HEMOGLOBIN. 6.9 g/dL (12.0-16.0)
[2019-09-07 10:53] LABS: HEMATOCRIT. 20.6 % (36.0-48.0)
[2019-09-07] MEDS: ACETAMINOPHEN 325MG TABLET PO PRN (11:19)
[2019-09-07] MEDS: AMPICILLIN 2,000 MG in SODIUM CHLORIDE 0.9% 100 ML IV SCH (13:10)
[2019-09-07] MEDS: DEXT 5%/0.9% NACL 1,000 ML IV SCH (16:00)
[2019-09-07] MEDS: ATORVASTATIN CALCIUM 40MG TABLET PO SCH (21:19)
[2019-09-08] VITALS (8 sets, daily range): BP systolic 107–155; BP diastolic 40–67
[2019-09-08] MEDS: AMPICILLIN 2,000 MG in SODIUM CHLORIDE 0.9% 100 ML IV SCH ×4 (00:43→17:36)
[2019-09-08] MEDS: CEFEPIME 2,000 MG in DEXT 5% WATER 100 ML IV SCH (00:43)
[2019-09-08] MEDS: DEXT 5%/0.9% NACL 1,000 ML IV SCH ×2 (01:36→15:40)
[2019-09-08 02:13] LABS: BASOPHILS % 0.9 % (0.0-2.0); EOSINOPHILS % 1.8 % (0.0-5.0); HEMATOCRIT. 33.1 % (36.0-48.0); HEMOGLOBIN. 11.3 g/dL (12.0-16.0); LYMPHOCYTES % 8.3 % (20.0-50.0); MEAN CORPUSCULAR HEMOGLOBIN 29.4 pg (28.0-32.0); MEAN CORPUSCULAR VOLUME 86.4 fL (81.0-99.0); MONOCYTES % 4.1 % (2.0-8.0); NEUTROPHILS % 84.9 % (40.0-76.0); PLATELET 170 x1000/uL (130-400); RED BLOOD CELL COUNT 3.84 mill/uL (4.2-5.4); RED CELL DISTRIBUTION WIDTH 15.4 % (11.6-14.6)
[2019-09-08 02:25] LABS: INR 1.1; PROTHROMBIN TIME 11.9 sec (9.6-11.0)
[2019-09-08] MEDS: BLOOD SUGAR DIAGNOSTIC STRIP TEST SCH ×4 (06:10→21:04)
[2019-09-08] MEDS: HYDRALAZINE HCL 25MG TABLET PO SCH ×3 (06:26→21:05)
[2019-09-08] MEDS: LACTULOSE 20G/30ML UDC PO SCH ×3 (06:26→21:05)
[2019-09-08] MEDS: INSULIN LISPRO 100 UNITS/ML SUBCUT SCH ×4 (06:27→21:17)
[2019-09-08 07:24] LABS: BASOPHILS % 0.4 % (0.0-2.0); EOSINOPHILS % 1.5 % (0.0-5.0); HEMATOCRIT. 32.3 % (36.0-48.0); HEMOGLOBIN. 11.1 g/dL (12.0-16.0); LYMPHOCYTES % 7.8 % (20.0-50.0); MEAN CORPUSCULAR HEMOGLOBIN 29.5 pg (28.0-32.0); MEAN CORPUSCULAR VOLUME 86.2 fL (81.0-99.0); MEAN PLATELET VOLUME 8.3 fl (7.4-10.4); MONOCYTES % 3.7 % (2.0-8.0); NEUTROPHILS % 86.6 % (40.0-76.0); PLATELET 159 x1000/uL (130-400); RED BLOOD CELL COUNT 3.74 mill/uL (4.2-5.4); RED CELL DISTRIBUTION WIDTH 15.5 % (11.6-14.6)
[2019-09-08] MEDS: PANTOPRAZOLE SODIUM 40 MG/VIAL IV SCH (08:51)
[2019-09-08] MEDS: AMLODIPINE 5MG TABLET PO SCH ×2 (08:51→21:00)
[2019-09-08] MEDS: LEVETIRACETAM 500MG PREMIX 100 ML IV SCH ×2 (08:53→21:05)
[2019-09-08] MEDS: ATORVASTATIN CALCIUM 40MG TABLET PO SCH (21:05)
[2019-09-08] MEDS ORDERED: IOHEXOL-350 100 ML BOTTLE ONE (21:28)
[2019-09-09] VITALS: BP 152/74
[2019-09-09] MEDS: CEFEPIME 2,000 MG in DEXT 5% WATER 100 ML IV SCH (00:05)
[2019-09-09] MEDS: AMPICILLIN 2,000 MG in SODIUM CHLORIDE 0.9% 100 ML IV SCH ×4 (00:05→18:14)
[2019-09-09 04:00] VITALS: BP 157/69
[2019-09-09] MEDS: DEXT 5%/0.9% NACL 1,000 ML IV SCH ×3 (05:48→21:00)
[2019-09-09] MEDS: HYDRALAZINE HCL 25MG TABLET PO SCH ×3 (05:51→21:58)
[2019-09-09] MEDS: BLOOD SUGAR DIAGNOSTIC STRIP TEST SCH ×4 (05:52→20:49)
[2019-09-09] MEDS: INSULIN LISPRO 100 UNITS/ML SUBCUT SCH ×4 (06:31→21:59)
[2019-09-09] MEDS: LACTULOSE 20G/30ML UDC PO SCH ×3 (06:31→22:01)
[2019-09-09 07:51] VITALS: BP 162/74
[2019-09-09 08:26] LABS: BASOPHILS % 0.6 % (0.0-2.0); HEMATOCRIT. 30.2 % (36.0-48.0); HEMOGLOBIN. 10.2 g/dL (12.0-16.0); LYMPHOCYTES % 11.9 % (20.0-50.0); MEAN CORPUSCULAR HEMOGLOBIN 29.5 pg (28.0-32.0); MEAN CORPUSCULAR VOLUME 86.8 fL (81.0-99.0); MEAN PLATELET VOLUME 8.6 fl (7.4-10.4); NEUTROPHILS % 80.5 % (40.0-76.0); PLATELET 159 x1000/uL (130-400); RED BLOOD CELL COUNT 3.47 mill/uL (4.2-5.4); RED CELL DISTRIBUTION WIDTH 15.5 % (11.6-14.6)
[2019-09-09] MEDS: PANTOPRAZOLE SODIUM 40 MG/VIAL IV SCH (08:56)
[2019-09-09] MEDS: LEVETIRACETAM 500MG PREMIX 100 ML IV SCH ×2 (08:56→20:46)
[2019-09-09] MEDS: AMLODIPINE 5MG TABLET PO SCH ×2 (08:57→21:58)
[2019-09-09 12:04] VITALS: BP 148/71
[2019-09-09] MEDS: HYDRALAZINE 20MG/ML VIAL IV PRN (13:11)
[2019-09-09 20:00] VITALS: BP 162/63
[2019-09-09] MEDS: ATORVASTATIN CALCIUM 40MG TABLET PO SCH (21:58)
[2019-09-09] MEDS ORDERED: IOHEXOL-350 100 ML BOTTLE ONE (22:51)
[2019-09-10] VITALS: BP 153/58
[2019-09-10] MEDS: AMPICILLIN 2,000 MG in SODIUM CHLORIDE 0.9% 100 ML IV SCH ×4 (00:18→19:16)
[2019-09-10] MEDS: CEFEPIME 2,000 MG in DEXT 5% WATER 100 ML IV SCH (01:41)
[2019-09-10 04:00] VITALS: BP 150/86
[2019-09-10] MEDS: BLOOD SUGAR DIAGNOSTIC STRIP TEST SCH ×4 (06:13→21:28)
[2019-09-10] MEDS: LACTULOSE 20G/30ML UDC PO SCH ×3 (06:22→21:19)
[2019-09-10] MEDS: INSULIN LISPRO 100 UNITS/ML SUBCUT SCH ×4 (06:22→21:32)
[2019-09-10] MEDS: HYDRALAZINE HCL 25MG TABLET PO SCH ×3 (06:23→21:18)
[2019-09-10 07:14] LABS: BASOPHILS % 0.7 % (0.0-2.0); EOSINOPHILS % 1.5 % (0.0-5.0); HEMATOCRIT. 28.1 % (36.0-48.0); HEMOGLOBIN. 9.5 g/dL (12.0-16.0); LYMPHOCYTES % 12.1 % (20.0-50.0); MEAN CORPUSCULAR HEMOGLOBIN 29.4 pg (28.0-32.0); MEAN CORPUSCULAR VOLUME 86.6 fL (81.0-99.0); MEAN PLATELET VOLUME 8.3 fl (7.4-10.4); MONOCYTES % 7.5 % (2.0-8.0); NEUTROPHILS % 78.2 % (40.0-76.0); PLATELET 136 x1000/uL (130-400); RED BLOOD CELL COUNT 3.24 mill/uL (4.2-5.4); RED CELL DISTRIBUTION WIDTH 15.3 % (11.6-14.6)
[2019-09-10 07:23] LABS: CHLORIDE 114 mEq/L (98-107)
[2019-09-10 08:00] VITALS: BP 155/71
[2019-09-10] MEDS: AMLODIPINE 5MG TABLET PO SCH ×2 (09:26→21:18)
[2019-09-10] MEDS: PANTOPRAZOLE SODIUM 40 MG/VIAL IV SCH (09:26)
[2019-09-10] MEDS: LEVETIRACETAM 500MG PREMIX 100 ML IV SCH ×2 (09:27→21:19)
[2019-09-10] MEDS ORDERED: POTASSIUM CHLORIDE 20MEQ/PACKET PO NR (10:30)
[2019-09-10 12:00] VITALS: BP 159/67
[2019-09-10 16:00] VITALS: BP 147/68
[2019-09-10] MEDS: NYSTATIN POWDER 15GM TOP SCH (17:34)
[2019-09-10 20:00] VITALS: BP 140/98
[2019-09-10] MEDS: ATORVASTATIN CALCIUM 40MG TABLET PO SCH (21:18)
[2019-09-11] VITALS: BP 136/50
[2019-09-11 04:00] VITALS: BP 147/59
[2019-09-11] MEDS: CEFEPIME 2,000 MG in DEXT 5% WATER 100 ML IV SCH (05:12)
[2019-09-11] MEDS: AMPICILLIN 2,000 MG in SODIUM CHLORIDE 0.9% 100 ML IV SCH ×4 (05:12→18:21)
[2019-09-11] MEDS: HYDRALAZINE HCL 25MG TABLET PO SCH ×3 (06:48→21:56)
[2019-09-11] MEDS: LACTULOSE 20G/30ML UDC PO SCH ×3 (06:48→21:56)
[2019-09-11 07:09] LABS: BASOPHILS % 0.6 % (0.0-2.0); EOSINOPHILS % 1.7 % (0.0-5.0); HEMATOCRIT. 28.2 % (36.0-48.0); HEMOGLOBIN. 9.5 g/dL (12.0-16.0); LYMPHOCYTES % 13.8 % (20.0-50.0); MEAN CORPUSCULAR HEMOGLOBIN 29.4 pg (28.0-32.0); MEAN CORPUSCULAR VOLUME 87.1 fL (81.0-99.0); MONOCYTES % 6.8 % (2.0-8.0); NEUTROPHILS % 77.1 % (40.0-76.0); PLATELET 132 x1000/uL (130-400); RED BLOOD CELL COUNT 3.23 mill/uL (4.2-5.4); RED CELL DISTRIBUTION WIDTH 15.4 % (11.6-14.6)
[2019-09-11 07:14] LABS: CHLORIDE 116 mEq/L (98-107)
[2019-09-11 07:54] VITALS: BP 163/80
[2019-09-11] MEDS: LEVETIRACETAM 500MG PREMIX 100 ML IV SCH ×2 (09:03→20:46)
[2019-09-11] MEDS: AMLODIPINE 5MG TABLET PO SCH ×2 (09:48→20:45)
[2019-09-11] MEDS: NYSTATIN POWDER 15GM TOP SCH ×3 (09:48→18:21)
[2019-09-11] MEDS: PANTOPRAZOLE SODIUM 40 MG/VIAL IV SCH (09:48)
[2019-09-11 11:48] VITALS: BP 147/72
[2019-09-11] MEDS: BLOOD SUGAR DIAGNOSTIC STRIP TEST SCH ×3 (12:55→20:39)
[2019-09-11] MEDS: INSULIN LISPRO 100 UNITS/ML SUBCUT SCH ×3 (12:59→20:39)
[2019-09-11] MEDS: HYDRALAZINE 20MG/ML VIAL IV PRN (13:02)
[2019-09-11 16:00] VITALS: BP 148/71
[2019-09-11 20:00] VITALS: BP 139/51
[2019-09-11] MEDS: ATORVASTATIN CALCIUM 40MG TABLET PO SCH (20:45)
[2019-09-12] VITALS (7 sets, daily range): BP systolic 126–147; BP diastolic 55–73
[2019-09-12] MEDS: AMPICILLIN 2,000 MG in SODIUM CHLORIDE 0.9% 100 ML IV SCH ×4 (00:56→18:10)
[2019-09-12] MEDS: HYDRALAZINE HCL 25MG TABLET PO SCH ×3 (06:21→22:00)
[2019-09-12] MEDS: LACTULOSE 20G/30ML UDC PO SCH ×3 (06:22→21:45)
[2019-09-12] MEDS: BLOOD SUGAR DIAGNOSTIC STRIP TEST SCH ×4 (06:28→21:41)
[2019-09-12] MEDS: INSULIN LISPRO 100 UNITS/ML SUBCUT SCH ×4 (06:29→21:45)
[2019-09-12 06:56] LABS: CHLORIDE 116 mEq/L (98-107)
[2019-09-12 06:58] LABS: BASOPHILS % 0.6 % (0.0-2.0); EOSINOPHILS % 1.5 % (0.0-5.0); HEMATOCRIT. 27.8 % (36.0-48.0); HEMOGLOBIN. 9.1 g/dL (12.0-16.0); MEAN CORPUSCULAR VOLUME 87.9 fL (81.0-99.0); MEAN PLATELET VOLUME 9.6 fl (7.4-10.4); MONOCYTES % 6.5 % (2.0-8.0); NEUTROPHILS % 76.4 % (40.0-76.0); PLATELET 136 x1000/uL (130-400); RED BLOOD CELL COUNT 3.16 mill/uL (4.2-5.4); RED CELL DISTRIBUTION WIDTH 15.5 % (11.6-14.6)
[2019-09-12] MEDS: PANTOPRAZOLE SODIUM 40 MG/VIAL IV SCH (09:03)
[2019-09-12] MEDS: NYSTATIN POWDER 15GM TOP SCH ×3 (09:03→18:10)
[2019-09-12] MEDS: LEVETIRACETAM 500MG PREMIX 100 ML IV SCH ×2 (09:03→21:44)
[2019-09-12] MEDS: AMLODIPINE 5MG TABLET PO SCH ×2 (09:03→21:44)
[2019-09-12] MEDS ORDERED: AMLO5TAB88 PO (10:24)
[2019-09-12] MEDS ORDERED: PANT40TA4 MT (10:24)
[2019-09-12] MEDS ORDERED: APIX5TAB4 PO (10:31)
[2019-09-12] MEDS: CEFEPIME 2,000 MG in DEXT 5% WATER 100 ML IV SCH (12:37)
[2019-09-12] MEDS: ACETAMINOPHEN 325MG TABLET PO PRN (12:37)
[2019-09-12] MEDS: ATORVASTATIN CALCIUM 40MG TABLET PO SCH (21:44)
[2019-09-13] VITALS: BP 139/80
[2019-09-13] MEDS: HYDRALAZINE HCL 25MG TABLET PO SCH ×4 (00:18→21:09)
[2019-09-13] MEDS: CEFEPIME 2,000 MG in DEXT 5% WATER 100 ML IV SCH ×3 (00:19→23:01)
[2019-09-13 04:00] VITALS: BP 143/70
[2019-09-13] MEDS: BLOOD SUGAR DIAGNOSTIC STRIP TEST SCH ×4 (06:33→20:59)
[2019-09-13] MEDS: INSULIN LISPRO 100 UNITS/ML SUBCUT SCH ×4 (06:51→21:12)
[2019-09-13] MEDS: LACTULOSE 20G/30ML UDC PO SCH ×3 (06:53→21:41)
[2019-09-13 07:47] LABS: CHLORIDE 117 mEq/L (98-107); HEMATOCRIT 29.4 % (36.0-48.0); HEMOGLOBIN 9.5 g/dL (12.0-16.0); MEAN CORPUSCULAR HEMOGLOBIN 28.8 pg (28.0-32.0); MEAN CORPUSCULAR VOLUME 89.1 fL (81.0-99.0); PLATELET 144 x1000/uL (130-400); RED CELL DISTRIBUTION WIDTH 16.1 % (11.6-14.6)
[2019-09-13 08:00] VITALS: BP 124/67
[2019-09-13] MEDS: LEVETIRACETAM 500MG PREMIX 100 ML IV SCH ×2 (08:16→20:41)
[2019-09-13] MEDS: PANTOPRAZOLE SODIUM 40 MG/VIAL IV SCH (08:16)
[2019-09-13] MEDS: AMLODIPINE 5MG TABLET PO SCH ×2 (08:16→21:09)
[2019-09-13] MEDS: NYSTATIN POWDER 15GM TOP SCH ×3 (08:25→17:16)
[2019-09-13 12:00] VITALS: BP 142/48
[2019-09-13 16:00] VITALS: BP_SYST 59
[2019-09-13 20:00] VITALS: BP 165/88
[2019-09-13] MEDS: CLONIDINE 0.1MG TABLET PO PRN (21:09)
[2019-09-13] MEDS: ATORVASTATIN CALCIUM 40MG TABLET PO SCH (21:09)
[2019-09-14 00:05] VITALS: BP 145/88
[2019-09-14 04:00] VITALS: BP 135/61
[2019-09-14] MEDS: BLOOD SUGAR DIAGNOSTIC STRIP TEST SCH ×4 (06:12→21:00)
[2019-09-14] MEDS: HYDRALAZINE HCL 25MG TABLET PO SCH ×3 (06:30→22:00)
[2019-09-14] MEDS: INSULIN LISPRO 100 UNITS/ML SUBCUT SCH ×4 (06:30→22:02)
[2019-09-14] MEDS: LACTULOSE 20G/30ML UDC PO SCH ×3 (06:31→22:00)
[2019-09-14] MEDS: ACETAMINOPHEN 325MG TABLET PO PRN (06:31)
[2019-09-14 08:00] VITALS: BP 126/91
[2019-09-14] MEDS: AMLODIPINE 5MG TABLET PO SCH ×2 (09:01→22:00)
[2019-09-14] MEDS: NYSTATIN POWDER 15GM TOP SCH ×3 (09:01→18:10)
[2019-09-14] MEDS: PANTOPRAZOLE SODIUM 40 MG/VIAL IV SCH (09:01)
[2019-09-14] MEDS: LEVETIRACETAM 500MG PREMIX 100 ML IV SCH ×2 (09:01→22:00)
[2019-09-14 12:00] VITALS: BP 134/71
[2019-09-14] MEDS: CEFEPIME 2,000 MG in DEXT 5% WATER 100 ML IV SCH (12:28)
[2019-09-14] MEDS ORDERED: LACT10SO7 PO (13:23)
[2019-09-14] MEDS ORDERED: KEPP500 MT (13:23)
[2019-09-14] MEDS: AMPICILLIN 2,000 MG in SODIUM CHLORIDE 0.9% 100 ML IV SCH ×2 (15:07→18:10)
[2019-09-14 16:00] VITALS: BP 149/56
[2019-09-14 20:00] VITALS: BP 146/57
[2019-09-14] MEDS: ATORVASTATIN CALCIUM 40MG TABLET PO SCH (22:00)
[2019-09-15] VITALS: BP 142/70
[2019-09-15] MEDS: AMPICILLIN 2,000 MG in SODIUM CHLORIDE 0.9% 100 ML IV SCH ×4 (00:31→17:36)
[2019-09-15 04:00] VITALS: BP 145/53
[2019-09-15] MEDS: HYDRALAZINE HCL 25MG TABLET PO SCH ×2 (06:22→14:39)
[2019-09-15] MEDS: LACTULOSE 20G/30ML UDC PO SCH ×2 (06:22→14:39)
[2019-09-15] MEDS: BLOOD SUGAR DIAGNOSTIC STRIP TEST SCH ×3 (06:47→17:59)
[2019-09-15] MEDS: INSULIN LISPRO 100 UNITS/ML SUBCUT SCH ×3 (06:48→18:17)
[2019-09-15 07:41] VITALS: BP 129/91
[2019-09-15 07:59] VITALS: BP 129/91
[2019-09-15] MEDS: PANTOPRAZOLE SODIUM 40 MG/VIAL IV SCH (08:25)
[2019-09-15] MEDS: NYSTATIN POWDER 15GM TOP SCH ×3 (08:25→17:35)
[2019-09-15] MEDS: AMLODIPINE 5MG TABLET PO SCH (08:26)
[2019-09-15] MEDS: LEVETIRACETAM 500MG PREMIX 100 ML IV SCH (08:26)
[2019-09-15] MEDS ORDERED: LIDOCAINE HCL 1% 20ML VIAL (Pyxis) INJ ONE (10:40)
[2019-09-15] MEDS ORDERED: SODIUM BICARBONATE 4% (2.4MEQ) 5ML VIAL IV ONE (10:40)
[2019-09-15 12:27] VITALS: BP 140/61
[2019-09-15 16:00] VITALS: BP 130/74
== END 2019-09-15 19:53 | disposition home health service (06) | DRG 710 ==
LOC: ER 13:39 → 8WST 21:16 → ENRESERV 08-19 08:33 → ER 08-19 10:06
PROVIDERS: ADMIT Internal Medicine; ATTEND Internal Medicine
PROC: 0QBL0ZZ Excision of Right Tarsal, Open Approach (ICD-10-PCS; principal; 2019-08-20)
PROC: 05HY33Z Insertion of Infusion Device into Upper Vein, Percutaneous Approach (ICD-10-PCS; 2019-08-24)
PROC: B54NZZA Ultrasonography of Left Upper Extremity Veins, Guidance (ICD-10-PCS; 2019-08-24)
PROC: 05H533Z Insertion of Infusion Device into Right Subclavian Vein, Percutaneous Approach (ICD-10-PCS; 2019-08-31)
PROC: B546ZZA Ultrasonography of Right Subclavian Vein, Guidance (ICD-10-PCS; 2019-08-31)
PROC: B5161ZA Fluoroscopy of Right Subclavian Vein using Low Osmolar Contrast, Guidance (ICD-10-PCS; 2019-08-31)
PROC: 30233N1 Transfusion of Nonautologous Red Blood Cells into Peripheral Vein, Percutaneous Approach (ICD-10-PCS; 2019-09-02)
PROC: 0DH63UZ Insertion of Feeding Device into Stomach, Percutaneous Approach (ICD-10-PCS; 2019-09-03)
PROC: 4A00X4Z Measurement of Central Nervous Electrical Activity, External Approach (ICD-10-PCS; 2019-09-05)
PROC: 009U3ZX Drainage of Spinal Canal, Percutaneous Approach, Diagnostic (ICD-10-PCS; 2019-09-06)
PROC: B01B1ZZ Fluoroscopy of Spinal Cord using Low Osmolar Contrast (ICD-10-PCS; 2019-09-06)
PROC: 05H533Z Insertion of Infusion Device into Right Subclavian Vein, Percutaneous Approach (ICD-10-PCS; 2019-09-15)
DX: A41.9 Sepsis, unspecified organism (principal); E43 Unspecified severe protein-calorie malnutrition; N17.9 Acute kidney failure, unspecified; I69.351 Hemiplegia and hemiparesis following cerebral infarction affecting right dominant side; E11.52 Type 2 diabetes mellitus with diabetic peripheral angiopathy with gangrene; E11.621 Type 2 diabetes mellitus with foot ulcer; L03.115 Cellulitis of right lower limb; E78.5 Hyperlipidemia, unspecified; Z68.25 Body mass index [BMI] 25.0-25.9, adult; D64.9 Anemia, unspecified; E11.69 Type 2 diabetes mellitus with other specified complication; T36.8X5A Adverse effect of other systemic antibiotics, initial encounter; D50.0 Iron deficiency anemia secondary to blood loss (chronic); M86.671 Other chronic osteomyelitis, right ankle and foot; G92 Toxic encephalopathy; L89.156 Pressure-induced deep tissue damage of sacral region; Y92.89 Other specified places as the place of occurrence of the external cause; B37.49 Other urogenital candidiasis; D63.8 Anemia in other chronic diseases classified elsewhere; E11.22 Type 2 diabetes mellitus with diabetic chronic kidney disease; E11.65 Type 2 diabetes mellitus with hyperglycemia; E72.20 Disorder of urea cycle metabolism, unspecified; E78.00 Pure hypercholesterolemia, unspecified; E87.0 Hyperosmolality and hypernatremia; E87.6 Hypokalemia; I13.0 Hypertensive heart and chronic kidney disease with heart failure and stage 1 through stage 4 chronic kidney disease, or unspecified chronic kidney disease; I48.0 Paroxysmal atrial fibrillation; L89.614 Pressure ulcer of right heel, stage 4; I48.20 Chronic atrial fibrillation, unspecified; I50.32 Chronic diastolic (congestive) heart failure; I65.29 Occlusion and stenosis of unspecified carotid artery; G90.2 Horner's syndrome; K29.71 Gastritis, unspecified, with bleeding; M24.561 Contracture, right knee; N18.9 Chronic kidney disease, unspecified; L97.429 Non-pressure chronic ulcer of left heel and midfoot with unspecified severity; R13.10 Dysphagia, unspecified; R41.4 Neurologic neglect syndrome; Z79.01 Long term (current) use of anticoagulants; Z79.4 Long term (current) use of insulin; Z79.899 Other long term (current) drug therapy; Z86.718 Personal history of other venous thrombosis and embolism; Z79.84 Long term (current) use of oral hypoglycemic drugs
CPT/HCPCS: 36415; 36573; 36600; 62270; 70496; 70498; 70544; 70551; 70553; 71045; 73630; 73718; 75635; 76770; 76937; 77003; 80048; 80053; 80061; 80202; 80305; 80320; 81003; 82040; 82140; 82270; 82375; 82550; 82575; 82607; 82746; 82805; 82945; 82962; 83036; 83605; 83735; 84100; 84134; 84145; 84157; 84439; 84443; 84481; 84484; 85014; 85018; 85025; 85027; 85049; 85384; 86635; 86850; 86900; 86920; 87070; 87075; 87077; 87106; 87186; 87252; 87529; 87899; 88311; 93005; 93970; 96365; 97163; 97530; 99285; C1725; C1769; C9113; J0290; J0360; J0690; J0692; J1100; J1580; J1650; J1815; J1953; J2020; J2060; J2250; J2543; J2704; J3010; J3370; J3475; J3480; J3490; J7030; J7040; J7042; J7050; J7060; P9016; Q9967; G0480

== ENCOUNTER 2019-09-21 17:28 | Inpatient (IN) | payer MEDICAID ==
[~2019-09-21] VITALS: Ht 157.5 cm; Wt 57.2 kg
[~2019-09-21 17:28] MED LIST changes: +AMLO5TAB88 PO; +LACT10SO7 PO; -LISI40TA4 PO; +PANT40TA4 MT; -SULF1TAB48 MT
[2019-09-21] MEDS ORDERED: ETOMIDATE 2MG/ML 10ML VIAL IV ONE (17:36)
[2019-09-21] MEDS ORDERED: VECURONIUM BROMIDE 10 MG/VIAL IV ONE (17:36)
[2019-09-21] MEDS ORDERED: SODIUM CHLORIDE 0.9% 1,000 ML IV ONE (17:42)
[2019-09-21] MEDS ORDERED: PIPERACILLIN/TAZ 3.375G PREMIX 50 ML IV ONE (17:45)
[2019-09-21] MEDS ORDERED: VANCOMYCIN 1 G PREMIX 200 ML IV ONE (17:45)
[2019-09-21] MEDS ORDERED: NOREPINEPHRINE 4MG/250ML PMX 250 ML IV ONE (18:15)
[2019-09-21] MEDS ORDERED: PROPOFOL 10MG/ML 100ML 100 ML IV SCH (18:15)
[2019-09-21] MEDS ORDERED: NOREPINEPHRINE 4MG in DEXT 5% WATER 250ML IV NR (18:36)
[2019-09-21 18:38] LABS: BASOPHILS % 0.4 % (0.0-2.0); EOSINOPHILS % 0.3 % (0.0-5.0); HEMATOCRIT. 33.5 % (36.0-48.0); HEMOGLOBIN. 10.3 g/dL (12.0-16.0); MEAN CORPUSCULAR HEMOGLOBIN 29.1 pg (28.0-32.0); MEAN CORPUSCULAR VOLUME 94.8 fL (81.0-99.0); MEAN PLATELET VOLUME 12.3 fl (7.4-10.4); MONOCYTES % 7.4 % (2.0-8.0); NEUTROPHILS % 71.9 % (40.0-76.0); PLATELET 226 x1000/uL (130-400); RED BLOOD CELL COUNT 3.53 mill/uL (4.2-5.4); RED CELL DISTRIBUTION WIDTH 17.4 % (11.6-14.6)
[2019-09-21 18:43] LABS: COLOR URINE YELLOW (YELLOW); KETONES URINE NEGATIVE (NEGATIVE); LEUKOCYTE ESTERASE URINE 3+ (NEGATIVE); NITRITE URINE NEGATIVE (NEGATIVE); OCCULT BLOOD URINE 2+ (NEGATIVE); PH URINE 7.5 (4.5-8.0); PROTEIN URINE 2+ (NEGATIVE); SPECIFIC GRAVITY URINE 1.018 (1.005-1.030); UROBILINOGEN URINE 0.2 E.U./dL (0.2-1.0)
[2019-09-21 18:45] LABS: CHLORIDE 130 mEq/L (98-107)
[2019-09-21] MEDS ORDERED: ACETAMINOPHEN 650MG SUPP PR ONE (18:45)
[2019-09-21 18:46] LABS: CLARITY URINE CLOUDY (CLEAR)
[2019-09-21 18:48] LABS: INR 1.2; PARTIAL THROMBOPLASTIN TIME 32.1 sec (23.4-31.0); PROTHROMBIN TIME 12.4 sec (9.6-11.0)
[2019-09-21] MEDS ORDERED: INSULIN REGULAR (HUMULIN R) UD 100 UNITS/ML SYR SUBCUT ONE (19:30)
[2019-09-21 19:44] LABS: BG BASE EXCESS -3.7 mmol/L (-2.0-2.0); BG CARBOXYHEMOGLOBIN 0.3 % (0.5-1.5); BG DEOXYHEMOGLOBIN 31.4 % (0.0-5.0); BG FRACTION INSPIRED OXYGEN 100; BG HCO3 ACT 19.7 mmol/L (22.0-26.0); BG METHEMOGLOBIN 0.2 % (0.0-1.5); BG OXYGEN SATURATION 68.4 % (92.0-98.5); BG OXYHEMOGLOBIN 68.1 % (94.0-97.0); BG PCO2 29.5 mmHg (35.0-45.0); BG PH 7.442 (7.350-7.450); BG PO2 34.6 mmHg (75.0-100.0); BG SAMPLE SITE RIGHT BRACHIAL; BG TIDAL VOLUME(mL) 500 mL; BG TOTAL HEMOGLOBIN 9.2 g/dL (12.0-18.0); BG VENT MODE VAPOTHERM; BG VENT RATE 12 set
[2019-09-21] MEDS ORDERED: SODIUM POLYSTYRENE SULFONATE 15 G/60 ML BOT NG ONE (20:00)
[2019-09-21] MEDS ORDERED: SODIUM BICARBONATE 8.4% 1 MEQ/ML 50ML SYR IV ONE (20:00)
[2019-09-21 20:06] LABS: BG BASE EXCESS -2.9 mmol/L (-2.0-2.0); BG CARBOXYHEMOGLOBIN 0.3 % (0.5-1.5); BG DEOXYHEMOGLOBIN 7.8 % (0.0-5.0); BG FRACTION INSPIRED OXYGEN 100; BG HCO3 ACT 20.9 mmol/L (22.0-26.0); BG METHEMOGLOBIN 0.4 % (0.0-1.5); BG OXYGEN SATURATION 92.1 % (92.0-98.5); BG OXYHEMOGLOBIN 91.5 % (94.0-97.0); BG PCO2 32.1 mmHg (35.0-45.0); BG PH 7.431 (7.350-7.450); BG PO2 66.4 mmHg (75.0-100.0); BG SAMPLE SITE RIGHT FEMORAL; BG TIDAL VOLUME(mL) 500 mL; BG TOTAL HEMOGLOBIN 9.2 g/dL (12.0-18.0); BG VENT MODE VENT - A/C; BG VENT RATE 12 set
[2019-09-21] MEDS ORDERED: ACETAMINOPHEN 650MG/20.3ML UDC GT PRN (21:00)
[2019-09-21] MEDS ORDERED: PIPERACILLIN/TAZ 3.375G PREMIX 50 ML IV SCH (21:00)
[2019-09-21] MEDS ORDERED: ONDANSETRON HCL 4MG/2ML INJ IV PRN (21:00)
[2019-09-21] MEDS ORDERED: IPRATROPIUM/ALBUTEROL 0.5-3(2.5)MG/3ML NEB NEB PRN (21:00)
[2019-09-21] MEDS ORDERED: DEXTROSE 5% WATER 1,000 ML IV SCH (21:30)
[2019-09-21] MEDS: PANTOPRAZOLE SODIUM 40 MG/VIAL IV SCH (22:51)
[2019-09-22 00:01] LABS: CREATINE KINASE MB FRACTION 4.9 ng/mL (0.5-3.6)
[2019-09-22] MEDS: PIPERACILLIN/TAZOBACTAM 2.25 G in DEXTROSE 5% WATER 50 ML IV SCH ×3 (02:08→17:13)
[2019-09-22 04:00] LABS: BASOPHILS % 1.1 % (0.0-2.0); EOSINOPHILS % 0.9 % (0.0-5.0); LYMPHOCYTES % 13.9 % (20.0-50.0); MEAN CORPUSCULAR HEMOGLOBIN 28.2 pg (28.0-32.0); MEAN CORPUSCULAR VOLUME 92.1 fL (81.0-99.0); MEAN PLATELET VOLUME 12.3 fl (7.4-10.4); MONOCYTES % 3.6 % (2.0-8.0); NEUTROPHILS % 80.5 % (40.0-76.0); PLATELET 197 x1000/uL (130-400); RED BLOOD CELL COUNT 2.82 mill/uL (4.2-5.4); RED CELL DISTRIBUTION WIDTH 16.6 % (11.6-14.6)
[2019-09-22 04:08] LABS: CHLORIDE 133 mEq/L (98-107)
[2019-09-22 04:16] LABS: HDL CHOLESTEROL 23 mg/dL (40-59)
[2019-09-22 04:17] LABS: LDL CHOLESTEROL 45 mg/dL (5-100)
[2019-09-22 04:18] LABS: CREATINE KINASE 224 IU/L (26-192)
[2019-09-22 04:21] LABS: CREATINE KINASE MB FRACTION 5.9 ng/mL (0.5-3.6)
[2019-09-22] MEDS ORDERED: NOREPINEPHRINE 8 MG in SODIUM CHLORIDE 0.9% 242 ML IV PRN (05:15)
[2019-09-22] MEDS: PANTOPRAZOLE SODIUM 40 MG/VIAL IV SCH (08:37)
[2019-09-22] MEDS: SODIUM CHLORIDE 0.45% 1,000 ML IV SCH ×2 (08:48→16:00)
[2019-09-22] MEDS ORDERED: HEPARIN 5000 UNITS/ML VIAL SUBCUT SCH (09:00)
[2019-09-22] MEDS: ASPIRIN 81MG TABLET PO SCH (13:24)
[2019-09-22] MEDS ORDERED: ATORVASTATIN CALCIUM 40MG TABLET PO SCH ×2 (16:00→21:00)
[2019-09-22] MEDS: LEVETIRACETAM 500MG TABLET PO SCH (16:32)
[2019-09-22] MEDS ORDERED: PROPOFOL 10MG/ML 100ML 100 ML IV PRN (17:30)
[2019-09-22] MEDS ORDERED: DEXTROSE 50% WATER 50ML SYRINGE IV PRN (17:30)
[2019-09-22] MEDS: ENOXAPARIN 60MG/0.6ML SYR SUBCUT SCH (19:05)
[2019-09-22] MEDS: INSULIN LISPRO 100 UNITS/ML SUBCUT SCH (21:29)
[2019-09-22] MEDS: BLOOD SUGAR DIAGNOSTIC STRIP TEST SCH (21:30)
[2019-09-22] MEDS ORDERED: INSULIN LISPRO 100 UNITS/ML SUBCUT NR (22:00)
[2019-09-22] MEDS: INSULIN GLARGINE UD 100 UNITS/ML SYR SUBCUT SCH (22:31)
[2019-09-22] MEDS: DOXYCYCLINE 100 MG in DEXT 5% WATER 100 ML IV SCH (23:22)
[2019-09-23] VITALS (14 sets, daily range): BP systolic 59–229; BP diastolic 39–98
[2019-09-23] MEDS: SODIUM CHLORIDE 0.45% 1,000 ML IV SCH ×3 (01:15→17:06)
[2019-09-23] MEDS: PIPERACILLIN/TAZOBACTAM 2.25 G in DEXTROSE 5% WATER 50 ML IV SCH ×3 (02:38→18:36)
[2019-09-23] MEDS ORDERED: DEXTROSE 5% WATER 1,000 ML IV SCH (06:30)
[2019-09-23] MEDS: BLOOD SUGAR DIAGNOSTIC STRIP TEST SCH ×4 (06:50→22:00)
[2019-09-23] MEDS: INSULIN LISPRO 100 UNITS/ML SUBCUT SCH ×4 (07:00→22:00)
[2019-09-23] MEDS: INSULIN GLARGINE UD 100 UNITS/ML SYR SUBCUT SCH ×2 (09:57→23:07)
[2019-09-23] MEDS: PANTOPRAZOLE SODIUM 40 MG/VIAL IV SCH (10:00)
[2019-09-23] MEDS: ASPIRIN 81MG TABLET PO SCH (10:10)
[2019-09-23 10:16] LABS: BG BASE EXCESS -4.9 mmol/L (-2.0-2.0); BG CARBOXYHEMOGLOBIN 0.3 % (0.5-1.5); BG DEOXYHEMOGLOBIN 0.4 % (0.0-5.0); BG FRACTION INSPIRED OXYGEN 100; BG HCO3 ACT 19.6 mmol/L (22.0-26.0); BG METHEMOGLOBIN 0.2 % (0.0-1.5); BG OXYGEN SATURATION 99.6 % (92.0-98.5); BG OXYHEMOGLOBIN 99.1 % (94.0-97.0); BG PCO2 33.3 mmHg (35.0-45.0); BG PH 7.387 (7.350-7.450); BG PO2 342.7 mmHg (75.0-100.0); BG SAMPLE SITE RIGHT RADIAL; BG TIDAL VOLUME(mL) 500 mL; BG TOTAL HEMOGLOBIN 7.8 g/dL (12.0-18.0); BG VENT MODE VENT - A/C; BG VENT RATE 12 set
[2019-09-23] MEDS: LEVETIRACETAM 500MG TABLET PO SCH ×2 (10:17→17:32)
[2019-09-23] MEDS: DOXYCYCLINE 100 MG in DEXT 5% WATER 100 ML IV SCH (11:08)
[2019-09-23] MEDS ORDERED: MIDAZOLAM HCL 100 MG in DEXT 5% WATER 80 ML IV PRN (11:30)
[2019-09-23] MEDS ORDERED: FENTANYL CITRATE/PF 1,000 MCG in SODIUM CHLORIDE 0.9% 80 ML IV PRN (11:30)
[2019-09-23] MEDS: IPRATROPIUM/ALBUTEROL 0.5-3(2.5)MG/3ML NEB HHN SCH (14:43)
[2019-09-23] MEDS: ENOXAPARIN 60MG/0.6ML SYR SUBCUT SCH (19:03)
[2019-09-23] MEDS: ATORVASTATIN CALCIUM 40MG TABLET PO SCH (22:30)
[2019-09-23] MEDS ORDERED: NOREPINEPHRINE 32 MG in DEXT 5% WATER 468 ML IV PRN (23:45)
[2019-09-24] VITALS (54 sets, daily range): BP systolic 62–136; BP diastolic 41–77
[2019-09-24] MEDS: SODIUM CHLORIDE 0.45% 1,000 ML IV SCH ×2 (00:21→08:38)
[2019-09-24] MEDS: PIPERACILLIN/TAZOBACTAM 2.25 G in DEXTROSE 5% WATER 50 ML IV SCH ×3 (01:09→18:17)
[2019-09-24] MEDS: DOXYCYCLINE 100 MG in DEXT 5% WATER 100 ML IV SCH ×2 (01:09→13:00)
[2019-09-24] MEDS: IPRATROPIUM/ALBUTEROL 0.5-3(2.5)MG/3ML NEB HHN SCH ×4 (02:02→21:35)
[2019-09-24 05:42] LABS: BASOPHILS % 0.3 % (0.0-2.0); EOSINOPHILS % 2.1 % (0.0-5.0); HEMATOCRIT. 23.5 % (36.0-48.0); HEMOGLOBIN. 7.3 g/dL (12.0-16.0); LYMPHOCYTES % 7.2 % (20.0-50.0); MEAN CORPUSCULAR HEMOGLOBIN 28.4 pg (28.0-32.0); MEAN CORPUSCULAR VOLUME 91.2 fL (81.0-99.0); MEAN PLATELET VOLUME 12.1 fl (7.4-10.4); MONOCYTES % 5.3 % (2.0-8.0); NEUTROPHILS % 85.1 % (40.0-76.0); PLATELET 128 x1000/uL (130-400); RED BLOOD CELL COUNT 2.58 mill/uL (4.2-5.4); RED CELL DISTRIBUTION WIDTH 15.9 % (11.6-14.6)
[2019-09-24] MEDS: INSULIN LISPRO 100 UNITS/ML SUBCUT SCH ×3 (06:00→18:00)
[2019-09-24] MEDS: BLOOD SUGAR DIAGNOSTIC STRIP TEST SCH ×3 (06:21→17:50)
[2019-09-24] MEDS ORDERED: POTASSIUM CHLORIDE 20MEQ/PACKET PO NR (07:00)
[2019-09-24 09:08] LABS: BG CARBOXYHEMOGLOBIN 0.2 % (0.5-1.5); BG DEOXYHEMOGLOBIN 0.7 % (0.0-5.0); BG FRACTION INSPIRED OXYGEN 40; BG HCO3 ACT 19.4 mmol/L (22.0-26.0); BG METHEMOGLOBIN 0.3 % (0.0-1.5); BG OXYGEN SATURATION 99.3 % (92.0-98.5); BG OXYHEMOGLOBIN 98.8 % (94.0-97.0); BG PCO2 32.4 mmHg (35.0-45.0); BG PH 7.395 (7.350-7.450); BG PO2 193.8 mmHg (75.0-100.0); BG SAMPLE SITE RIGHT RADIAL; BG TIDAL VOLUME(mL) 500 mL; BG TOTAL HEMOGLOBIN 6.8 g/dL (12.0-18.0); BG VENT MODE VENT - A/C; BG VENT RATE 12 set
[2019-09-24] MEDS: LEVETIRACETAM 500MG TABLET PO SCH ×2 (09:52→17:49)
[2019-09-24] MEDS: ASPIRIN 81MG TABLET PO SCH (09:52)
[2019-09-24] MEDS: PANTOPRAZOLE SODIUM 40 MG/VIAL IV SCH (09:52)
[2019-09-24] MEDS: INSULIN GLARGINE UD 100 UNITS/ML SYR SUBCUT SCH ×2 (09:53→21:15)
[2019-09-24] MEDS: ATORVASTATIN CALCIUM 40MG TABLET PO SCH (21:14)
[2019-09-25] VITALS (42 sets, daily range): BP systolic 97–154; BP diastolic 52–83
[2019-09-25] MEDS: PIPERACILLIN/TAZOBACTAM 2.25 G in DEXTROSE 5% WATER 50 ML IV SCH ×3 (01:22→17:20)
[2019-09-25] MEDS: SODIUM CHLORIDE 0.45% 1,000 ML IV SCH ×2 (01:22→17:15)
[2019-09-25] MEDS: DOXYCYCLINE 100 MG in DEXT 5% WATER 100 ML IV SCH ×2 (01:22→12:56)
[2019-09-25] MEDS: IPRATROPIUM/ALBUTEROL 0.5-3(2.5)MG/3ML NEB HHN SCH ×4 (02:41→21:00)
[2019-09-25 05:51] LABS: BASOPHILS % 0.1 % (0.0-2.0); EOSINOPHILS % 2.6 % (0.0-5.0); LYMPHOCYTES % 9.3 % (20.0-50.0); MEAN CORPUSCULAR HEMOGLOBIN 28.9 pg (28.0-32.0); MEAN CORPUSCULAR VOLUME 89.9 fL (81.0-99.0); MEAN PLATELET VOLUME 12.2 fl (7.4-10.4); MONOCYTES % 4.2 % (2.0-8.0); NEUTROPHILS % 83.8 % (40.0-76.0); PLATELET 107 x1000/uL (130-400); RED BLOOD CELL COUNT 2.15 mill/uL (4.2-5.4); RED CELL DISTRIBUTION WIDTH 15.7 % (11.6-14.6)
[2019-09-25 05:57] LABS: CHLORIDE 126 mEq/L (98-107)
[2019-09-25] MEDS: BLOOD SUGAR DIAGNOSTIC STRIP TEST SCH ×4 (06:00→17:15)
[2019-09-25] MEDS: INSULIN LISPRO 100 UNITS/ML SUBCUT SCH ×4 (06:00→17:52)
[2019-09-25 06:05] LABS: PHOSPHORUS 5.6 mg/dL (2.5-4.9)
[2019-09-25 06:10] LABS: HEMATOCRIT. 19.3 % (36.0-48.0); HEMOGLOBIN. 6.2 g/dL (12.0-16.0)
[2019-09-25 08:56] LABS: BG BASE EXCESS -7.4 mmol/L (-2.0-2.0); BG CARBOXYHEMOGLOBIN 0.2 % (0.5-1.5); BG DEOXYHEMOGLOBIN 10.2 % (0.0-5.0); BG FRACTION INSPIRED OXYGEN 40; BG HCO3 ACT 16.9 mmol/L (22.0-26.0); BG METHEMOGLOBIN 0.5 % (0.0-1.5); BG OXYGEN SATURATION 89.7 % (92.0-98.5); BG OXYHEMOGLOBIN 89.1 % (94.0-97.0); BG PCO2 29.3 mmHg (35.0-45.0); BG PO2 56.6 mmHg (75.0-100.0); BG SAMPLE SITE RIGHT RADIAL; BG TIDAL VOLUME(mL) 500 mL; BG TOTAL HEMOGLOBIN 6.7 g/dL (12.0-18.0); BG VENT MODE VENT - A/C; BG VENT RATE 12 set
[2019-09-25] MEDS: PANTOPRAZOLE SODIUM 40 MG/VIAL IV SCH (09:07)
[2019-09-25] MEDS: ASPIRIN 81MG TABLET PO SCH (09:07)
[2019-09-25] MEDS: LEVETIRACETAM 500MG TABLET PO SCH ×2 (09:07→17:20)
[2019-09-25] MEDS: INSULIN GLARGINE UD 100 UNITS/ML SYR SUBCUT SCH ×2 (10:36→22:00)
[2019-09-25] MEDS ORDERED: POTASSIUM CHLORIDE INJ 40 MEQ in DEXT 5% WATER 250 ML IV SCH (11:00)
[2019-09-25] MEDS ORDERED: MAGNESIUM 2 G PREMIX 50 ML IV SCH (11:00)
[2019-09-25] MEDS ORDERED: MORPHINE SULFATE 2 MG/ML CPJ (NOT FOR IM USE) IV PRN (11:45)
[2019-09-25] MEDS ORDERED: BISACODYL 5MG TABLET PO SCH (13:30)
[2019-09-25] MEDS: METOCLOPRAMIDE HCL 10MG/2ML VIAL IV SCH ×2 (13:30→17:21)
[2019-09-25] MEDS ORDERED: BISACODYL 10MG SUPP PR SCH (13:30)
[2019-09-25] MEDS ORDERED: BISACODYL 5MG TABLET PO NR (17:20)
[2019-09-25 18:42] LABS: HEMATOCRIT 16.7 % (36.0-48.0)
[2019-09-25] MEDS: ATORVASTATIN CALCIUM 40MG TABLET PO SCH (20:51)
[2019-09-26] VITALS (29 sets, daily range): BP systolic 121–177; BP diastolic 66–99
[2019-09-26] MEDS: METOCLOPRAMIDE HCL 10MG/2ML VIAL IV SCH ×4 (00:05→18:04)
[2019-09-26] MEDS: BLOOD SUGAR DIAGNOSTIC STRIP TEST SCH ×4 (00:06→18:01)
[2019-09-26] MEDS: IPRATROPIUM/ALBUTEROL 0.5-3(2.5)MG/3ML NEB HHN SCH ×4 (00:51→20:59)
[2019-09-26] MEDS: DOXYCYCLINE 100 MG in DEXT 5% WATER 100 ML IV SCH ×2 (01:22→12:50)
[2019-09-26 01:42] LABS: HEMATOCRIT 26.9 % (36.0-48.0); HEMOGLOBIN 8.9 g/dL (12.0-16.0)
[2019-09-26] MEDS: PIPERACILLIN/TAZOBACTAM 2.25 G in DEXTROSE 5% WATER 50 ML IV SCH ×3 (02:59→18:04)
[2019-09-26 05:03] LABS: BASOPHILS % 0.3 % (0.0-2.0); HEMATOCRIT. 29.9 % (36.0-48.0); HEMOGLOBIN. 9.7 g/dL (12.0-16.0); LYMPHOCYTES % 7.1 % (20.0-50.0); MEAN CORPUSCULAR HEMOGLOBIN 28.9 pg (28.0-32.0); MEAN CORPUSCULAR VOLUME 88.8 fL (81.0-99.0); MEAN PLATELET VOLUME 12.6 fl (7.4-10.4); MONOCYTES % 4.4 % (2.0-8.0); NEUTROPHILS % 86.2 % (40.0-76.0); PLATELET 122 x1000/uL (130-400); RED BLOOD CELL COUNT 3.37 mill/uL (4.2-5.4); RED CELL DISTRIBUTION WIDTH 15.5 % (11.6-14.6)
[2019-09-26 05:10] LABS: CHLORIDE 124 mEq/L (98-107)
[2019-09-26] MEDS: INSULIN LISPRO 100 UNITS/ML SUBCUT SCH ×4 (06:00→18:00)
[2019-09-26 09:03] LABS: BG BASE EXCESS -5.8 mmol/L (-2.0-2.0); BG CARBOXYHEMOGLOBIN 0.2 % (0.5-1.5); BG DEOXYHEMOGLOBIN 1.2 % (0.0-5.0); BG FRACTION INSPIRED OXYGEN 40; BG HCO3 ACT 18.1 mmol/L (22.0-26.0); BG METHEMOGLOBIN 0.1 % (0.0-1.5); BG OXYGEN SATURATION 98.8 % (92.0-98.5); BG OXYHEMOGLOBIN 98.5 % (94.0-97.0); BG PCO2 30.3 mmHg (35.0-45.0); BG PH 7.395 (7.350-7.450); BG PO2 217.7 mmHg (75.0-100.0); BG SAMPLE SITE RIGHT RADIAL; BG TIDAL VOLUME(mL) 500 mL; BG TOTAL HEMOGLOBIN 10.2 g/dL (12.0-18.0); BG VENT MODE VENT - A/C; BG VENT RATE 12 set
[2019-09-26] MEDS: INSULIN GLARGINE UD 100 UNITS/ML SYR SUBCUT SCH ×2 (09:36→21:52)
[2019-09-26] MEDS: LEVETIRACETAM 500MG TABLET PO SCH ×2 (09:36→17:00)
[2019-09-26] MEDS: SODIUM CHLORIDE 0.45% 1,000 ML IV SCH (09:36)
[2019-09-26] MEDS: PANTOPRAZOLE SODIUM 40 MG/VIAL IV SCH (09:36)
[2019-09-26 12:54] LABS: BG BASE EXCESS -5.7 mmol/L (-2.0-2.0); BG CARBOXYHEMOGLOBIN 0.2 % (0.5-1.5); BG DEOXYHEMOGLOBIN 1.4 % (0.0-5.0); BG FRACTION INSPIRED OXYGEN 40; BG HCO3 ACT 18.3 mmol/L (22.0-26.0); BG METHEMOGLOBIN 0.5 % (0.0-1.5); BG OXYGEN SATURATION 98.6 % (92.0-98.5); BG OXYHEMOGLOBIN 97.9 % (94.0-97.0); BG PCO2 30.2 mmHg (35.0-45.0); BG PO2 197.5 mmHg (75.0-100.0); BG PRESSURE SUPPORT 8; BG SAMPLE SITE RIGHT RADIAL; BG TOTAL HEMOGLOBIN 8.7 g/dL (12.0-18.0); BG VENT MODE VENT - CPAP
[2019-09-26] MEDS ORDERED: CLONIDINE 0.1MG TABLET PO PRN (18:45)
[2019-09-26] MEDS: ATORVASTATIN CALCIUM 40MG TABLET PO SCH (21:57)
[2019-09-27] VITALS (12 sets, daily range): BP systolic 111–160; BP diastolic 60–87
[2019-09-27] MEDS: BLOOD SUGAR DIAGNOSTIC STRIP TEST SCH ×4 (00:34→17:37)
[2019-09-27] MEDS: METOCLOPRAMIDE HCL 10MG/2ML VIAL IV SCH ×4 (00:45→17:19)
[2019-09-27] MEDS: DOXYCYCLINE 100 MG in DEXT 5% WATER 100 ML IV SCH ×2 (00:52→12:56)
[2019-09-27] MEDS: PIPERACILLIN/TAZOBACTAM 2.25 G in DEXTROSE 5% WATER 50 ML IV SCH ×3 (02:32→17:20)
[2019-09-27] MEDS: IPRATROPIUM/ALBUTEROL 0.5-3(2.5)MG/3ML NEB HHN SCH ×4 (02:54→21:41)
[2019-09-27] MEDS: INSULIN LISPRO 100 UNITS/ML SUBCUT SCH ×4 (06:00→17:37)
[2019-09-27 08:06] LABS: BASOPHILS % 0.2 % (0.0-2.0); EOSINOPHILS % 1.8 % (0.0-5.0); HEMATOCRIT. 30.9 % (36.0-48.0); HEMOGLOBIN. 10.1 g/dL (12.0-16.0); LYMPHOCYTES % 9.8 % (20.0-50.0); MEAN CORPUSCULAR HEMOGLOBIN 28.8 pg (28.0-32.0); MEAN CORPUSCULAR VOLUME 88.5 fL (81.0-99.0); MEAN PLATELET VOLUME 11.7 fl (7.4-10.4); MONOCYTES % 5.8 % (2.0-8.0); NEUTROPHILS % 82.4 % (40.0-76.0); PLATELET 127 x1000/uL (130-400); RED CELL DISTRIBUTION WIDTH 15.8 % (11.6-14.6)
[2019-09-27 08:58] LABS: PHOSPHORUS 4.1 mg/dL (2.5-4.9)
[2019-09-27] MEDS: LEVETIRACETAM 500MG TABLET PO SCH ×2 (09:20→17:19)
[2019-09-27] MEDS: PANTOPRAZOLE SODIUM 40 MG/VIAL IV SCH (09:20)
[2019-09-27] MEDS: INSULIN GLARGINE UD 100 UNITS/ML SYR SUBCUT SCH ×2 (09:27→21:37)
[2019-09-27] MEDS: DEXTROSE 5% WATER 1,000 ML IV SCH (11:03)
[2019-09-27] MEDS: ATORVASTATIN CALCIUM 40MG TABLET PO SCH (21:34)
[2019-09-28] VITALS (12 sets, daily range): BP systolic 122–154; BP diastolic 68–92
[2019-09-28] MEDS: METOCLOPRAMIDE HCL 10MG/2ML VIAL IV SCH ×5 (00:35→23:30)
[2019-09-28] MEDS: DOXYCYCLINE 100 MG in DEXT 5% WATER 100 ML IV SCH ×2 (00:35→15:02)
[2019-09-28] MEDS: IPRATROPIUM/ALBUTEROL 0.5-3(2.5)MG/3ML NEB HHN SCH ×4 (01:22→22:02)
[2019-09-28] MEDS: BLOOD SUGAR DIAGNOSTIC STRIP TEST SCH ×5 (01:51→23:31)
[2019-09-28] MEDS: PIPERACILLIN/TAZOBACTAM 2.25 G in DEXTROSE 5% WATER 50 ML IV SCH ×3 (02:41→17:25)
[2019-09-28] MEDS: DEXTROSE 5% WATER 1,000 ML IV SCH (05:37)
[2019-09-28 06:24] LABS: BASOPHILS % 0.2 % (0.0-2.0); EOSINOPHILS % 1.2 % (0.0-5.0); HEMATOCRIT. 29.4 % (36.0-48.0); HEMOGLOBIN. 9.6 g/dL (12.0-16.0); LYMPHOCYTES % 10.2 % (20.0-50.0); MEAN CORPUSCULAR HEMOGLOBIN 28.7 pg (28.0-32.0); NEUTROPHILS % 81.4 % (40.0-76.0); PLATELET 160 x1000/uL (130-400); RED BLOOD CELL COUNT 3.34 mill/uL (4.2-5.4); RED CELL DISTRIBUTION WIDTH 15.6 % (11.6-14.6)
[2019-09-28] MEDS: INSULIN LISPRO 100 UNITS/ML SUBCUT SCH ×5 (06:59→23:31)
[2019-09-28 07:05] LABS: PHOSPHORUS 3.7 mg/dL (2.5-4.9)
[2019-09-28] MEDS: PANTOPRAZOLE SODIUM 40 MG/VIAL IV SCH (09:56)
[2019-09-28] MEDS: LEVETIRACETAM 500MG TABLET PO SCH ×2 (09:57→17:25)
[2019-09-28] MEDS: INSULIN GLARGINE UD 100 UNITS/ML SYR SUBCUT SCH ×2 (09:57→21:18)
[2019-09-28] MEDS: DESMOPRESSIN ACETATE IVPB 1 MCG in SODIUM CHLORIDE 0.9% 50 ML IV SCH ×2 (10:58→21:17)
[2019-09-28] MEDS ORDERED: MAGNESIUM 2 G PREMIX 50 ML IV NR (11:00)
[2019-09-28 11:59] LABS: BG BASE EXCESS -3.3 mmol/L (-2.0-2.0); BG CARBOXYHEMOGLOBIN 0.2 % (0.5-1.5); BG DEOXYHEMOGLOBIN 3.1 % (0.0-5.0); BG FRACTION INSPIRED OXYGEN 28; BG HCO3 ACT 20.4 mmol/L (22.0-26.0); BG METHEMOGLOBIN 1.2 % (0.0-1.5); BG OXYGEN SATURATION 96.9 % (92.0-98.5); BG OXYHEMOGLOBIN 95.5 % (94.0-97.0); BG PCO2 31.8 mmHg (35.0-45.0); BG PH 7.426 (7.350-7.450); BG PO2 98.5 mmHg (75.0-100.0); BG SAMPLE SITE RIGHT RADIAL; BG TOTAL HEMOGLOBIN 9.7 g/dL (12.0-18.0); BG VENT MODE MASK - AEROSOL
[2019-09-28] MEDS: ATORVASTATIN CALCIUM 40MG TABLET PO SCH (21:17)
[2019-09-29] VITALS (12 sets, daily range): BP systolic 110–160; BP diastolic 68–92
[2019-09-29] MEDS: DEXTROSE 5% WATER 1,000 ML IV SCH ×2 (01:09→21:53)
[2019-09-29] MEDS: PIPERACILLIN/TAZOBACTAM 2.25 G in DEXTROSE 5% WATER 50 ML IV SCH ×3 (01:21→17:05)
[2019-09-29] MEDS: DOXYCYCLINE 100 MG in DEXT 5% WATER 100 ML IV SCH ×2 (02:17→13:25)
[2019-09-29] MEDS: IPRATROPIUM/ALBUTEROL 0.5-3(2.5)MG/3ML NEB HHN SCH ×4 (02:32→20:35)
[2019-09-29] MEDS: METOCLOPRAMIDE HCL 10MG/2ML VIAL IV SCH ×3 (05:47→17:03)
[2019-09-29] MEDS: INSULIN LISPRO 100 UNITS/ML SUBCUT SCH ×3 (05:49→17:21)
[2019-09-29] MEDS: BLOOD SUGAR DIAGNOSTIC STRIP TEST SCH ×3 (05:50→17:21)
[2019-09-29 06:40] LABS: BASOPHILS % 0.2 % (0.0-2.0); EOSINOPHILS % 1.3 % (0.0-5.0); HEMATOCRIT. 27.7 % (36.0-48.0); LYMPHOCYTES % 12.8 % (20.0-50.0); MEAN CORPUSCULAR HEMOGLOBIN 28.7 pg (28.0-32.0); MEAN CORPUSCULAR VOLUME 88.2 fL (81.0-99.0); MEAN PLATELET VOLUME 10.1 fl (7.4-10.4); MONOCYTES % 7.2 % (2.0-8.0); NEUTROPHILS % 78.5 % (40.0-76.0); PLATELET 177 x1000/uL (130-400); RED BLOOD CELL COUNT 3.15 mill/uL (4.2-5.4); RED CELL DISTRIBUTION WIDTH 15.7 % (11.6-14.6)
[2019-09-29] MEDS: PANTOPRAZOLE SODIUM 40 MG/VIAL IV SCH (09:07)
[2019-09-29] MEDS: LEVETIRACETAM 500MG TABLET PO SCH ×2 (09:07→16:59)
[2019-09-29] MEDS: DESMOPRESSIN ACETATE IVPB 1 MCG in SODIUM CHLORIDE 0.9% 50 ML IV SCH ×2 (09:07→20:40)
[2019-09-29] MEDS: INSULIN GLARGINE UD 100 UNITS/ML SYR SUBCUT SCH ×2 (10:08→21:53)
[2019-09-29] MEDS: GUAIFENESIN 200MG/10ML SUGAR FREE UDC PO SCH ×3 (12:21→21:51)
[2019-09-29] MEDS: ATORVASTATIN CALCIUM 40MG TABLET PO SCH (20:40)
[2019-09-30] VITALS (12 sets, daily range): BP systolic 99–176; BP diastolic 62–92
[2019-09-30] MEDS: INSULIN LISPRO 100 UNITS/ML SUBCUT SCH ×5 (00:06→23:29)
[2019-09-30] MEDS: METOCLOPRAMIDE HCL 10MG/2ML VIAL IV SCH ×5 (00:06→23:28)
[2019-09-30] MEDS: BLOOD SUGAR DIAGNOSTIC STRIP TEST SCH ×5 (00:07→23:30)
[2019-09-30] MEDS: PIPERACILLIN/TAZOBACTAM 2.25 G in DEXTROSE 5% WATER 50 ML IV SCH ×3 (01:15→17:02)
[2019-09-30] MEDS: IPRATROPIUM/ALBUTEROL 0.5-3(2.5)MG/3ML NEB HHN SCH ×5 (02:32→22:10)
[2019-09-30] MEDS: GUAIFENESIN 200MG/10ML SUGAR FREE UDC PO SCH ×4 (04:14→20:58)
[2019-09-30 07:22] LABS: BASOPHILS % 0.4 % (0.0-2.0); HEMATOCRIT. 28.6 % (36.0-48.0); HEMOGLOBIN. 9.3 g/dL (12.0-16.0); LYMPHOCYTES % 12.7 % (20.0-50.0); MEAN CORPUSCULAR HEMOGLOBIN 28.5 pg (28.0-32.0); MEAN CORPUSCULAR VOLUME 87.9 fL (81.0-99.0); MEAN PLATELET VOLUME 9.6 fl (7.4-10.4); MONOCYTES % 6.5 % (2.0-8.0); NEUTROPHILS % 79.4 % (40.0-76.0); PLATELET 193 x1000/uL (130-400); RED BLOOD CELL COUNT 3.25 mill/uL (4.2-5.4)
[2019-09-30] MEDS: ZINC SULFATE 220 MG ( 50 ) CAPSULE PO SCH (09:20)
[2019-09-30] MEDS: DESMOPRESSIN ACETATE IVPB 1 MCG in SODIUM CHLORIDE 0.9% 50 ML IV SCH (09:20)
[2019-09-30] MEDS: ASCORBIC ACID 500 MG TABLET PO SCH (09:20)
[2019-09-30] MEDS: LEVETIRACETAM 500MG TABLET PO SCH ×2 (09:20→17:02)
[2019-09-30] MEDS: PANTOPRAZOLE SODIUM 40 MG/VIAL IV SCH (09:20)
[2019-09-30] MEDS: MULTIVITAMINS,THER W-MINERALS TABLET PO SCH (09:20)
[2019-09-30] MEDS: INSULIN GLARGINE UD 100 UNITS/ML SYR SUBCUT SCH ×2 (10:15→21:04)
[2019-09-30] MEDS: ATORVASTATIN CALCIUM 40MG TABLET PO SCH (20:58)
[2019-09-30] MEDS: ACETYLCYSTEINE 100MG/ML 10% VIAL 4ML INH SCH (21:35)
[2019-10-01] VITALS (12 sets, daily range): BP systolic 122–160; BP diastolic 64–82
[2019-10-01] MEDS: IPRATROPIUM/ALBUTEROL 0.5-3(2.5)MG/3ML NEB HHN SCH ×4 (01:22→22:10)
[2019-10-01] MEDS: PIPERACILLIN/TAZOBACTAM 2.25 G in DEXTROSE 5% WATER 50 ML IV SCH ×3 (01:38→17:11)
[2019-10-01] MEDS: GUAIFENESIN 200MG/10ML SUGAR FREE UDC PO SCH ×4 (04:15→21:06)
[2019-10-01] MEDS: METOCLOPRAMIDE HCL 10MG/2ML VIAL IV SCH ×3 (05:20→17:08)
[2019-10-01] MEDS: BLOOD SUGAR DIAGNOSTIC STRIP TEST SCH ×3 (05:55→17:07)
[2019-10-01] MEDS: INSULIN LISPRO 100 UNITS/ML SUBCUT SCH ×3 (05:55→17:07)
[2019-10-01 06:26] LABS: BASOPHILS % 0.3 % (0.0-2.0); EOSINOPHILS % 1.2 % (0.0-5.0); HEMATOCRIT. 26.8 % (36.0-48.0); HEMOGLOBIN. 8.8 g/dL (12.0-16.0); LYMPHOCYTES % 12.9 % (20.0-50.0); MEAN CORPUSCULAR HEMOGLOBIN 28.6 pg (28.0-32.0); MEAN CORPUSCULAR VOLUME 87.3 fL (81.0-99.0); MEAN PLATELET VOLUME 9.6 fl (7.4-10.4); MONOCYTES % 5.7 % (2.0-8.0); NEUTROPHILS % 79.9 % (40.0-76.0); PLATELET 188 x1000/uL (130-400); RED BLOOD CELL COUNT 3.07 mill/uL (4.2-5.4); RED CELL DISTRIBUTION WIDTH 15.4 % (11.6-14.6)
[2019-10-01] MEDS: ACETYLCYSTEINE 100MG/ML 10% VIAL 4ML INH SCH ×2 (08:11→22:10)
[2019-10-01] MEDS: LEVETIRACETAM 500MG TABLET PO SCH ×2 (08:50→17:08)
[2019-10-01] MEDS: PANTOPRAZOLE SODIUM 40 MG/VIAL IV SCH (08:50)
[2019-10-01] MEDS: MULTIVITAMINS,THER W-MINERALS TABLET PO SCH (08:50)
[2019-10-01] MEDS: ZINC SULFATE 220 MG ( 50 ) CAPSULE PO SCH (08:50)
[2019-10-01] MEDS: ASCORBIC ACID 500 MG TABLET PO SCH (08:50)
[2019-10-01] MEDS: INSULIN GLARGINE UD 100 UNITS/ML SYR SUBCUT SCH ×2 (10:15→21:11)
[2019-10-01] MEDS ORDERED: AMOX-424 MT (14:13)
[2019-10-01] MEDS: ATORVASTATIN CALCIUM 40MG TABLET PO SCH (21:06)
[2019-10-02] VITALS (9 sets, daily range): BP systolic 108–173; BP diastolic 57–84
[2019-10-02] MEDS: INSULIN LISPRO 100 UNITS/ML SUBCUT SCH ×3 (00:06→12:00)
[2019-10-02] MEDS: METOCLOPRAMIDE HCL 10MG/2ML VIAL IV SCH ×3 (00:06→12:33)
[2019-10-02] MEDS: BLOOD SUGAR DIAGNOSTIC STRIP TEST SCH ×3 (00:07→11:40)
[2019-10-02] MEDS: IPRATROPIUM/ALBUTEROL 0.5-3(2.5)MG/3ML NEB HHN SCH ×2 (02:12→08:23)
[2019-10-02] MEDS: GUAIFENESIN 200MG/10ML SUGAR FREE UDC PO SCH ×2 (05:36→09:09)
[2019-10-02] MEDS: ACETYLCYSTEINE 100MG/ML 10% VIAL 4ML INH SCH (08:22)
[2019-10-02] MEDS: LEVETIRACETAM 500MG TABLET PO SCH (09:08)
[2019-10-02] MEDS: ZINC SULFATE 220 MG ( 50 ) CAPSULE PO SCH (09:08)
[2019-10-02] MEDS: PANTOPRAZOLE SODIUM 40 MG/VIAL IV SCH (09:08)
[2019-10-02] MEDS: ASCORBIC ACID 500 MG TABLET PO SCH (09:08)
[2019-10-02] MEDS: MULTIVITAMINS,THER W-MINERALS TABLET PO SCH (09:09)
[2019-10-02] MEDS: INSULIN GLARGINE UD 100 UNITS/ML SYR SUBCUT SCH (09:09)
== END 2019-10-02 14:54 | disposition hospice, home (50) | DRG 720 ==
LOC: ER 17:28 → MICUSO 19:50 → EDBEDREQ 20:02 → EDBEDREQTM 20:02 → ENRESERV 09-23 21:49 → CVICU 09-23 22:40 → 3WST 09-26 19:12
PROVIDERS: ADMIT Internal Medicine; ATTEND Internal Medicine
PROC: 5A1955Z Respiratory Ventilation, Greater than 96 Consecutive Hours (ICD-10-PCS; principal; 2019-09-21)
PROC: 0BH17EZ Insertion of Endotracheal Airway into Trachea, Via Natural or Artificial Opening (ICD-10-PCS; 2019-09-21)
PROC: 30233N1 Transfusion of Nonautologous Red Blood Cells into Peripheral Vein, Percutaneous Approach (ICD-10-PCS; 2019-09-25)
DX: A41.9 Sepsis, unspecified organism (principal); I21.A1 Myocardial infarction type 2; J96.01 Acute respiratory failure with hypoxia; J69.0 Pneumonitis due to inhalation of food and vomit; N17.0 Acute kidney failure with tubular necrosis; E44.0 Moderate protein-calorie malnutrition; G93.41 Metabolic encephalopathy; D64.9 Anemia, unspecified; E11.10 Type 2 diabetes mellitus with ketoacidosis without coma; N18.9 Chronic kidney disease, unspecified; M86.671 Other chronic osteomyelitis, right ankle and foot; E11.22 Type 2 diabetes mellitus with diabetic chronic kidney disease; E83.42 Hypomagnesemia; E87.5 Hyperkalemia; I31.3 Pericardial effusion (noninflammatory); I50.9 Heart failure, unspecified; I13.0 Hypertensive heart and chronic kidney disease with heart failure and stage 1 through stage 4 chronic kidney disease, or unspecified chronic kidney disease; L03.115 Cellulitis of right lower limb; I25.10 Atherosclerotic heart disease of native coronary artery without angina pectoris; E78.5 Hyperlipidemia, unspecified; E11.51 Type 2 diabetes mellitus with diabetic peripheral angiopathy without gangrene; E11.69 Type 2 diabetes mellitus with other specified complication; D72.810 Lymphocytopenia; E87.0 Hyperosmolality and hypernatremia; E86.0 Dehydration; E86.1 Hypovolemia; E78.1 Pure hyperglyceridemia; I65.23 Occlusion and stenosis of bilateral carotid arteries; L97.419 Non-pressure chronic ulcer of right heel and midfoot with unspecified severity; N39.0 Urinary tract infection, site not specified; R65.20 Severe sepsis without septic shock; I48.20 Chronic atrial fibrillation, unspecified; R13.10 Dysphagia, unspecified; L89.156 Pressure-induced deep tissue damage of sacral region; D69.6 Thrombocytopenia, unspecified; E87.6 Hypokalemia; Z66 Do not resuscitate; Z51.5 Encounter for palliative care; B37.49 Other urogenital candidiasis; E11.621 Type 2 diabetes mellitus with foot ulcer; I69.351 Hemiplegia and hemiparesis following cerebral infarction affecting right dominant side; Z79.01 Long term (current) use of anticoagulants; Z79.84 Long term (current) use of oral hypoglycemic drugs; Z79.899 Other long term (current) drug therapy; Z78.1 Physical restraint status; Z93.1 Gastrostomy status; Z68.23 Body mass index [BMI] 23.0-23.9, adult; Z03.818 Encounter for observation for suspected exposure to other biological agents ruled out
CPT/HCPCS: 36415; 36600; 71045; 74018; 78580; 80048; 80053; 80061; 80202; 81003; 82040; 82270; 82330; 82375; 82550; 82553; 82805; 82962; 83036; 83605; 83735; 83880; 83935; 84100; 84134; 84145; 84295; 84478; 84484; 85014; 85018; 85025; 86850; 86870; 86880; 86900; 86920; 87015; 87045; 87070; 87427; 87449; 87493; 87635; 89055; 93005; 93306; 93970; 94002; 94003; 94640; 94667; 96365; 97162; 99291; C9113; J1644; J1650; J1815; J2270; J2543; J2597; J2704; J2765; J3370; J3475; J3480; J3490; J7030; J7050; J7060; J7070; J7608; P9016

== ENCOUNTER 2019-10-11 15:22 | Emergency (ER) | payer MEDICAID ==
[~2019-10-11] VITALS: Ht 162.6 cm; Wt 50.0 kg
[~2019-10-11 15:22] MED LIST changes: -AMLO5TAB88 PO; +AMOX-424 MT; -APIX5TAB4 PO; -HYDR-4134 MT; -LIP40 PO
[2019-10-11 16:05] VITALS: BP 45/27
== END 2019-10-11 18:55 | disposition expired ==
LOC: ER 15:22
DX: I46.9 Cardiac arrest, cause unspecified (principal); J96.90 Respiratory failure, unspecified, unspecified whether with hypoxia or hypercapnia; E11.9 Type 2 diabetes mellitus without complications; I10 Essential (primary) hypertension; I95.9 Hypotension, unspecified; Z66 Do not resuscitate; Z74.01 Bed confinement status; Z86.73 Personal history of transient ischemic attack (TIA), and cerebral infarction without residual deficits
CPT/HCPCS: 31500; 82962; 93005; 94002; 99285; Z7610